=== PATIENT | female | born 1995 | race Caucasian/White ===

== ENCOUNTER → 2020-06-04 | Outpatient (REF) | payer OTHER ==
[2020-06-04 18:04] LABS: HEMATOCRIT 39.1 % (36.0-47.0); HEMOGLOBIN 13.3 g/dl (12.0-15.5); MEAN CORPUSCULAR HEMOGLOBIN 30.4 pg (27.0-33.0); MEAN CORPUSCULAR VOLUME 89.5 fl (80.0-96.0); PLATELET COUNT, AUTOMATED 369 10^3/uL (150-450); RED BLOOD COUNT 4.37 10^6/uL (4.00-5.40)
[2020-06-04 23:56] LABS: HCG, SERUM QUANTITATIVE 69981 MIU/ML; HEPATITIS C VIRUS ABY INDEX < 0.0 INDEX (<0.8)
[2020-06-06 09:21] LABS: HIV 1&2 SCREEN CENTAUR NEGATIVE (NEGATIVE)
== END ==
LOC: M LAB REF 16:26
PROVIDERS: ATTEND Advanced Practice Midwife
DX: Z36.89 Encounter for other specified antenatal screening (principal)

== ENCOUNTER → 2020-09-16 | Outpatient (CLI) | payer OTHER ==
[~2020-09-16] MED LIST: ACET-683 PO; COLA100C5 PO; IBUP-1022 PO; IBUP1TAB6 PO; ONDA4TAB6 PO; OXYC-517 PO; PRENTAB9 PO
[2020-09-16 13:26] LABS: HEMATOCRIT 36.6 % (36.0-47.0); HEMOGLOBIN 12.1 g/dl (12.0-15.5); MEAN CORPUSCULAR HEMOGLOBIN 31.1 pg (27.0-33.0); MEAN CORPUSCULAR HGB CONC 33.1 g/dl (32.0-36.5); MEAN CORPUSCULAR VOLUME 94.1 fl (80.0-96.0); PLATELET COUNT, AUTOMATED 396 10^3/uL (150-450); RED BLOOD COUNT 3.89 10^6/uL (4.00-5.40); WHITE BLOOD COUNT 11.8 10^3/uL (4.0-10.0)
== END ==
LOC: M LAB 09:15
PROVIDERS: ATTEND Advanced Practice Midwife
DX: Z36.89 Encounter for other specified antenatal screening (principal)

== ENCOUNTER 2020-10-28 02:54 | Outpatient (CLI) | payer OTHER ==
[~2020-10-28] VITALS: Ht 162.6 cm; Wt 117.3 kg
[2020-10-28 03:12] VITALS: BP 135/84
[2020-10-28] MEDS ORDERED: PRENTAB9 PO (03:31)
[2020-10-28 03:48] VITALS: BP 134/77
[2020-10-28] MEDS ORDERED: FAMOTIDINE 20 MG TAB PO ONE (04:05)
[2020-10-28] MEDS ORDERED: HOME MED LIST COMPLETE! XX SCH (04:15)
[2020-10-28 04:33] LABS: HEMATOCRIT 35.8 % (36.0-47.0); HEMOGLOBIN 12.2 g/dl (12.0-15.5); MEAN CORPUSCULAR HEMOGLOBIN 30.9 pg (27.0-33.0); MEAN CORPUSCULAR HGB CONC 34.1 g/dl (32.0-36.5); MEAN CORPUSCULAR VOLUME 90.6 fl (80.0-96.0); PLATELET COUNT, AUTOMATED 334 10^3/uL (150-450); RED BLOOD COUNT 3.95 10^6/uL (4.00-5.40); WHITE BLOOD COUNT 17.3 10^3/uL (4.0-10.0)
[2020-10-28 05:06] LABS: ALBUMIN 2.4 GM/DL (3.2-5.2); ALT/SGPT 36 U/L (12-78); AMYLASE 73 U/L (25-115); BILIRUBIN,DIRECT 0.2 MG/DL (0.0-0.2); BILIRUBIN,TOTAL 0.5 MG/DL (0.2-1.0); LIPASE 473 U/L (73-393)
[2020-10-28 05:39] VITALS: BP 115/62
--- NOTE | 2020-10-28 06:37 | REPVR ---
PROCEDURE INFORMATION: Exam: US Abdomen, Limited; Right Upper Quadrant Exam date and time: 10/28/2020 4:54 AM Age: 25 years old Clinical indication: Abdominal pain; Acute; ; Additional info: Upper abdominal pain TECHNIQUE: Imaging protocol: US abdomen. Real time ultrasound with image documentation. Limited exam focused on the right upper quadrant. COMPARISON: No relevant prior studies available. FINDINGS: Liver: No focal hepatic mass. Gallbladder: Cholelithiasis and echogenic bile in the gallbladder. Technologist assessment of sonographic Rivas sign was not reported. Common bile duct: Normal caliber of the incompletely visualized common bile duct measuring 4 mm. Pancreas: Obscuration of the pancreas by bowel gas. Right kidney: Normal morphology of the incompletely visualized right kidney. No hydronephrosis. Uterus: Nonvisualized intrauterine with a documented heart rate of 136 bpm. IMPRESSION: Cholelithiasis and echogenic bile in the gallbladder. Electronically signed by: Gamal Craft On 10/28/2020 06:36:19 AM
[2020-10-28 07:08] VITALS: BP 114/72
[2020-10-28] MEDS ORDERED: LR 1,000 ML IV SCH (07:10)
[2020-10-28] MEDS ORDERED: LACTATED RINGER'S 1000 ML IV ONE (07:10)
[2020-10-28 08:33] LABS: BLOOD UREA NITROGEN 8 MG/DL (7-18); CALCIUM LEVEL 8.6 MG/DL (8.5-10.1); CARBON DIOXIDE LEVEL 24 MEQ/L (21-32); CHLORIDE LEVEL 108 MEQ/L (98-107); CREATININE FOR GFR 0.41 MG/DL (0.55-1.30); GLOMERULAR FILTRATION RATE > 60.0 (>60); GLUCOSE, FASTING 100 MG/DL (70-100); POTASSIUM SERUM 3.9 MEQ/L (3.5-5.1); SODIUM LEVEL 139 MEQ/L (136-145)
--- NOTE | 2020-10-28 08:58 | IPN ---
PROGRESS NOTE DATE: 10/28/2020 SUBJECTIVE: Susie is a 25-year-old 1 para 0 at 33-5/7 weeks gestation with an estimated date of confinement (EDC) of 12/11/2020 based on first trimester ultrasound. She presented to labor and delivery today with report of acute onset of upper abdominal pain that was colicky in nature starting approximately at midnight and had gotten worse. She reports the pain is a constant pain with surges of more increasingly uncomfortable episodes every few minutes. She does deny painful contractions, vaginal bleeding, leakage of fluid; the fetus has been active. Her care was initiated at [facility] in the first trimester. course complicated by obesity. OBSTETRIC HISTORY: Primigravida. OBSTETRIC LABORATORY: A positive. Antibody screen negative. Rubella immune. VDRL nonreactive. Urine culture: No growth. Hepatitis B surface antigen negative. HIV negative. Hepatitis C antibody nonreactive. Gonorrhea and chlamydia negative. Gestational diabetic screening normal at 59 and her GBS is unknown at this time. MEDICAL PROBLEMS: Obesity. SURGERIES: Tympanostomy, tympanoplasty, ear. FAMILY HISTORY: Noncontributory. SOCIAL HISTORY: The patient is single; however, the partner is at bedside and supportive. She is a nonsmoker. Denies alcohol and drug use. Denies history of sexually-transmitted infections, and denies history of abuse; physical, sexual and emotional. ALLERGIES: SULFA. CURRENT MEDICATIONS: vitamin. OBJECTIVE: Upon arrival, the patient appears mildly uncomfortable. Temperature is 97.2, pulse 88, respirations 18, blood pressure 135/84. heart rate 130 with moderate variability, positive accelerations, negative decelerations. There is no pattern of regular painful contractions. Sterile vaginal examination: Long, thick and closed. Labs have returned. Her WBCs are 17.3. Her AST is 47, alkaline phosphatase 140, lipase 473, amylase 73. She did undergo a gallbladder ultrasound which noted cholelithiasis and echogenic bile in the gallbladder. ASSESSMENT: Intrauterine at 33-5/7 weeks. heart rate category 1. Cholelithiasis. Elevated lipase. PLAN: Continue NPO diet, IV fluids and basic metabolic panel to check electrolytes. Continue to observe. At this time, the patient does report that her pain is significantly decreased; however, still mildly present. I did review instructions related to low-fat diet to prevent further complications with gallstones and palliative measures. The patient and her partner have had their questions answered and are agreeable to the plan at this time.
[2020-10-28 09:35] VITALS: BP 129/66
== END 2020-10-28 09:37 | disposition home or self-care (01) ==
LOC: M LDO 02:54
PROVIDERS: ATTEND Advanced Practice Midwife
DX: O99.613 Diseases of the digestive system complicating pregnancy, third trimester (principal); Z3A.33 33 weeks gestation of pregnancy; K80.20 Calculus of gallbladder without cholecystitis without obstruction; Z88.2 Allergy status to sulfonamides; O99.213 Obesity complicating pregnancy, third trimester; E66.9 Obesity, unspecified
CPT/HCPCS: 36415; 59025; 76705; 80048; 80076; 82150; 83690; 85027; 96360; G0378; G0463

== ENCOUNTER 2020-11-11 15:33 | Outpatient (CLI) | payer OTHER ==
[~2020-11-11] VITALS: Ht 160 cm; Wt 116.4 kg
[~2020-11-11 15:33] MED LIST changes: -ACET-683 PO; -COLA100C5 PO; -IBUP-1022 PO; -IBUP1TAB6 PO; -ONDA4TAB6 PO; -OXYC-517 PO
--- NOTE | 2020-11-11 16:01 | HPEPDOC ---
Obstetrical History & Physical General Date of Admission History of Present Illness Pt is a 25yo F at 35+5/7 weeks with EDC of 12/11/2020 based on first trimester ultrasound who presents with 32 hr Hx of decreased movement. Pt was seen at [facility] this morning. She denies bleeding, significant fluid loss, contractions, or abdominal pain. Information Provided By: Patient Age: 25 : 1 Term: 0 Pre-term: 0 Abortions: 0 Livin Care Care: Good Care Dating Final EDC: Dec 11, 2020 Final EDC by: 1st trimester (US) Past Medical History Past Obstetrical History : Past Obstetrical History: Primgravida Complications: No COGNOS ANALYST History: No pertinent history Past Medical History Surgical History: Gallbladder (Cholelithiasis), Other (Tympanostomy ) Family History Significant Family History: No pertinent family hx Social History Marital Status: Single (Has partner) Family situation: Spouse/partner home Psychosocial History: No pertinent psych hx * Smoker: non-smoker Alcohol: Denies Drugs: denies Abuse Violence Screening Have you been sexually assault: No Allergies Coded Allergies: Sulfa (Sulfonamide Antibiotics) (Verified Allergy, Unknown, 10/28/20) swelling throat mouth face, hives Medications Scheduled No.137/Iron/Folic Acd ( Vitamin Tablet) 1 Each Tablet, 1 TAB PO DAILY Physical Examination Physical Examination GENERAL: Alert and oriented times three. BREAST: . ABDOMEN: Gravid and non-tender to touch. FETUS: Is vertex (VTX) by sterile vaginal examination (SVE), fetus is vertex (VTX) by Candelario. HEART RATE: Regular rate and rhythm. LUNGS: Clear to auscultation (CTA). EXTREMITIES: No edema. No clonus. Pertinent Laboratoy Data Blood Type: A+ Tocometer Contractions: No Assessment/Plan Assessment Pt is a 25-year-old (G)1 para (P)0-0-0-0 at 35+5/7 weeks by first trimester ultrasound. Presents to Labor and Delivery (L&D) with decreased movement for 32hrs. Plan patient has had 10/10 BPP. home with PTL precautions and FKCs f/u at OB office SEBLE CORTES OMS-3 Nov 11, 2020 16:01 EDGARDO BLANTON MD. Nov 12, 2020 05:33
--- NOTE | 2020-11-11 16:41 | REP ---
INDICATION: decreased movement COMPARISON: None. TECHNIQUE: Transabdominal obstetrical ultrasound with color Doppler evaluation. FINDINGS: Examination demonstrates a single live advanced intrauterine in cephalic presentation. motion is identified by technologist. Placenta is noted anterior and grade 3 without evidence for placenta previa or abruption. Amniotic fluid volume is normal. Cervix measures 3.0 cm in length and appears closed.. Selected gestational age: 35 weeks 5 days with BONNIE 12/11/2020. FHR equals 132 beats per minute. Biophysical profile score: 09/21 RYNE: 9.6 cm (7.8-24.9) Umbilical artery SD ratio: 2.28, 2.37 (1.65-3.53) IMPRESSION: Single live advanced gestation in cephalic presentation. Amniotic fluid volume and biophysical profile score normal. <Electronically signed by Rod Amador > 11/11/20 [id number]
[2020-11-11] MEDS ORDERED: HOME MED LIST COMPLETE! XX SCH (17:00)
[2020-11-11 17:04] VITALS: BP 102/52
== END 2020-11-11 18:00 | disposition home or self-care (01) ==
LOC: M LDO 15:33
PROVIDERS: ATTEND Obstetrics & Gynecology
DX: O36.8130 Decreased fetal movements, third trimester, not applicable or unspecified (principal); Z3A.35 35 weeks gestation of pregnancy; Z90.49 Acquired absence of other specified parts of digestive tract; Z88.2 Allergy status to sulfonamides
CPT/HCPCS: 59025; 76819; 76820; G0378; G0463

== ENCOUNTER → 2020-11-18 | Outpatient (REF) | payer OTHER | LOC: M LAB REF 11:34 | PROVIDERS: ATTEND Obstetrics & Gynecology | DX: Z34.83 Encounter for supervision of other normal pregnancy, third trimester (principal) ==

== ENCOUNTER 2020-12-03 15:26 | Inpatient (IN) | payer OTHER ==
[~2020-12-03] VITALS: Ht 160 cm; Wt 118.0 kg
[2020-12-03] VITALS (8 sets, daily range): BP systolic 125–174; BP diastolic 68–104
[2020-12-03] MEDS ORDERED: HOME MED LIST COMPLETE! XX SCH ×2 (15:55)
[2020-12-03 17:31] LABS: HEMATOCRIT 35.2 % (36.0-47.0); HEMOGLOBIN 12.2 g/dl (12.0-15.5); MEAN CORPUSCULAR HEMOGLOBIN 31.1 pg (27.0-33.0); MEAN CORPUSCULAR HGB CONC 34.7 g/dl (32.0-36.5); MEAN CORPUSCULAR VOLUME 89.8 fl (80.0-96.0); PLATELET COUNT, AUTOMATED 359 10^3/uL (150-450); RED BLOOD COUNT 3.92 10^6/uL (4.00-5.40); WHITE BLOOD COUNT 14.4 10^3/uL (4.0-10.0)
[2020-12-03 17:59] LABS: ALBUMIN 2.3 GM/DL (3.2-5.2); BILIRUBIN,DIRECT 0.1 MG/DL (0.0-0.2); BILIRUBIN,TOTAL 0.4 MG/DL (0.2-1.0); TOTAL PROTEIN 6.1 GM/DL (6.4-8.2)
[2020-12-03] MEDS ORDERED: LACTATED RINGER'S 1000 ML IV ONE (19:35)
[2020-12-03] MEDS: LR 1,000 ML IV SCH (20:50)
[2020-12-03] MEDS ORDERED: ursodioL 300 MG CAP PO SCH (21:00)
--- NOTE | 2020-12-03 21:48 | REPVR ---
PROCEDURE INFORMATION: Exam: US Abdomen Complete Exam date and time: 12/03/2020 8:37 PM Age: 25 years old Clinical indication: Abdominal pain; Other: Ruq; ; Additional info: Pancreatitis, HX cholelithiasis, lipase elevated TECHNIQUE: Imaging protocol: Real-time ultrasound of the abdomen with image documentation. COMPARISON: US Abdomen 10/28/2020 4:42 AM FINDINGS: Liver: Unremarkable. Gallbladder: Cholelithiasis without gallbladder wall thickening or pericholecystic fluid. Negative sonographic Rivas's sign, as per the mineral surveying technician. Common bile duct: No stones. No ductal dilatation. Pancreas: Suboptimally visualized. Right kidney: No mass. No definite stones. No hydronephrosis. Left kidney: No mass. No definite stones. No hydronephrosis. Spleen: Unremarkable. IMPRESSION: Cholelithiasis without sonographic evidence of acute cholecystitis. Electronically signed by: Orlin Olea On 12/03/2020 21:47:45 PM
[2020-12-03] MEDS: ursodioL 300 MG CAP PO SCH (23:26)
--- NOTE | 2020-12-03 23:58 | HPE ---
HISTORY AND PHYSICAL DATE OF ADMISSION: 12/03/2020 HISTORY OF PRESENT ILLNESS: Liliana is a 25-year-old 1, para 0, at 38 and 6/7 weeks gestation with an EDC of 12/11/2020 based on first trimester ultrasound. She presents to labor and delivery today with a report of severe upper abdominal pain that occurred approximately an hour and a half after eating lunch, which was a peanut and jelly sandwich. Of note; she does have known cholelithiasis and echogenic bile in the gallbladder and has been managing that expectedly with a low fat diet over the last month. She reports that the pain was severe and has now subsided and it is much more bearable since arriving to labor and delivery. She denies painful contractions, vaginal bleeding and leakage of fluid, the fetus has been active. Her care initiated at [facility] in the first trimester. Her course was complicated by obesity and the recent diagnosis of cholelithiasis. OBSTETRIC HISTORY: Primigravida. OBSTETRIC LABS: A+. Antibody screen negative. Rubella immune. VDRL nonreactive. Urine culture no growth. Hepatitis B surface antigen negative. HIV negative. Hepatitis C negative. Gonorrhea and Chlamydia negative. She did undergo noninvasive testing, which showed low risk for aneuploidy, male fetus. Gestational diabetes screening is 59. GBS is negative. Urine culture no growth. PAST MEDICAL HISTORY: Obesity. PAST SURGICAL HISTORY: Tympanostomy. ALLERGIES: Sulfa. FAMILY HISTORY: Noncontributory. SOCIAL HISTORY: Patient is single, however, there is a partner that is at bedside and supportive. She is a nonsmoker. She denies current alcohol use and drug use. She denies history of sexually transmitted infections. She denies history of abuse; physical, sexual and emotional. CURRENT MEDICATIONS: Vitamins. OBJECTIVE: VITALS: Temperature 97.6, pulse 87, respirations 18, blood pressure 102/52. The heart rate is 130 with moderate variability, positive accelerations, negative decelerations. There is no pattern of contractions. ABDOMEN: Gravid, in cephalic presentation. STERILE VAGINAL EXAM: Fingertip dilated, thick and -3 station. She did undergo repeat liver enzymes, LABORATORY DATA: Alkaline phosphatase 238. AST 21, ALT 30. Her amylase 296, which is elevated and her lipase is significantly elevated at 3,195. White blood cell count is 14.4, hemoglobin 12.2, hematocrit 35.2 and platelets 359,000. IMAGING: Abdominal ultrasound was ordered to evaluate the pancreas. The pancreas is suboptimally visualized due to the . Her gallbladder demonstrates cholelithiasis without gallbladder wall thickening or pericholecystitic fluid. Negative sonographic Rivas's Sign per the lead assistant manager. Common bile duct; no stones, no ductal dilatation. ASSESSMENT: Intrauterine at 38 and 6/7 weeks. heart rate is category 1. Acute pancreatitis. PLAN: Per consult with Dr. Quintin Ruff I.V. fluids NPO diet to continue. Pain management as needed. Start Ursodiol. Repeat the labs in the morning. May consider induction of labor tomorrow as the patient will be 39 weeks. I did review the plan with the patient and her partner; all of their questions have been answered and they are agreeable to this plan. The patient will be removed from electronic monitoring overnight so she may rest. JD
[2020-12-04] VITALS (8 sets, daily range): BP systolic 83–138; BP diastolic 47–77
[2020-12-04] MEDS: LR 1,000 ML IV SCH ×2 (04:14→11:33)
[2020-12-04 08:17] LABS: HEMOGLOBIN 11.2 g/dl (12.0-15.5); MEAN CORPUSCULAR HEMOGLOBIN 30.4 pg (27.0-33.0); MEAN CORPUSCULAR HGB CONC 33.9 g/dl (32.0-36.5); MEAN CORPUSCULAR VOLUME 89.7 fl (80.0-96.0); PLATELET COUNT, AUTOMATED 285 10^3/uL (150-450); RED BLOOD COUNT 3.68 10^6/uL (4.00-5.40)
[2020-12-04 08:34] LABS: BILIRUBIN,DIRECT 0.1 MG/DL (0.0-0.2); BILIRUBIN,TOTAL 0.5 MG/DL (0.2-1.0)
[2020-12-04] MEDS: ursodioL 300 MG CAP PO SCH (10:29)
--- OUTSIDE RECORDS SUMMARY | 2020-12-04 21:03 | CCD ---
Author Author [facility] Address Unknown Phone Unavailable Care Team Providers Care Lepidopterist Name Role Phone Maring, Noe PA Unavailable Unavailable Maring, Noe PA Unavailable Unavailable Maring, Noe PA Unavailable Unavailable Maring, Noe PA Unavailable Unavailable Maring, Noe PA Unavailable Unavailable Maring, Noe PA Unavailable Unavailable Maring, Noe PA Unavailable Unavailable Maring, Noe PA Unavailable Unavailable Maring, Noe PA Unavailable Unavailable Maring, Noe PA Unavailable Unavailable Maring, Noe PA Unavailable Unavailable Maring, Noe PA Unavailable Unavailable Maring, Noe PA Unavailable Unavailable Maring, Noe PA Unavailable Unavailable Maring, Noe PA Unavailable Unavailable Maring, Noe PA Unavailable Unavailable Re-disclosure Warning The records that you are about to access may contain information from federally-assisted alcohol or drug abuse programs. If such information is present, then the following federally mandated warning applies: This information has been disclosed to you from records protected by federal confidentiality rules (42 CFR part 2). The federal rules prohibit you from making any further disclosure of this information unless further disclosure is expressly permitted by the written consent of the person to whom it pertains or as otherwise permitted by 42 CFR part 2. A general authorization for the release of medical or other information is NOT sufficient for this purpose. The Federal rules restrict any use of the information to criminally investigate or prosecute any alcohol or drug abuse patient.The records that you are about to access may contain highly sensitive health information, the redisclosure of which is protected by Article 27-F of the [place] State Public Health law. If you continue you may have access to information: Regarding HIV / AIDS; Provided by facilities licensed or operated by the [facility] Office of Mental Health; or Provided by the [facility] Office for People With Developmental Disabilities. If such information is present, then the following [facility] mandated warning applies: This information has been disclosed to you from confidential records which are protected by state law. State law prohibits you from making any further disclosure of this information without the specific written consent of the person to whom it pertains, or as otherwise permitted by law. Any unauthorized further disclosure in violation of state law may result in a fine or long-term sentence or both. A general authorization for the release of medical or other information is NOT sufficient authorization for further disc losure. Encounters Encounter Providers Location Date Indications Data Source(s ) Outpatient Attender: Noe PERKINS 09/01/19 04:14:46 PM EDT - 08/31/2020 04:42:27 PM EDT [facility] ([facility] ) Medications No Information Insurance Providers Payer name Policy type / Coverage type Policy ID Covered democrat ID Covered democrat's relationship to hanson Policy [place]on Plan Information [id number]/ [id number] Other 00 [id number] [facility] [id number] FA2 [id number] [facility] [id number] Problems, Conditions, and Diagnoses No Information Surgeries/Procedures No Information Results No Information Social History No Information
--- NOTE | 2020-12-04 21:14 | IPNPDOC ---
Text Note Date of Service The patient was seen on 12/04/20. NOTE S: 25 yo G1 at 39 0/7 weeks admitted with gallstone pancreatitis. Pain resolved. Able to tolerate low fat diet. O: AVSS NAD Abd: NT, gravid FHT: Cat. I toco: irregular ultrasound: vtx A/P 25 yo G1 at 39 0/7 weeks with gallstone pancreatitis Plan labor induction with Misoprostol vtx confirmed closed cervix at last exam Pancreatitis labs reversing VS,Fishbone, I+O VS, Fishbone, I+O Laboratory Tests 12/04/20 07:40 Vital Signs Date Time Temp Pulse Resp B/P (MAP) Pulse Ox O2 Delivery O2 Flow Rate FiO2 12/04/20 18:00 98.4 79 18 120/73 (89) 98 Room Air I&O- Last 24 Hours up to 6 AM 12/04/20 06:00 Intake Total 937.5 ml Output Total 250 ml Balance 687.5 ml SHAKA SANABRIA MD Dec 04, 2020 21:14
[2020-12-04] MEDS: miSOPROStol 50MCG 1/2 TABLET SL SCH (22:18)
[2020-12-05] VITALS (37 sets, daily range): BP systolic 80–140; BP diastolic 45–86
[2020-12-05] MEDS: miSOPROStol 50MCG 1/2 TABLET SL SCH ×2 (02:48→07:23)
[2020-12-05 09:16] LABS: HEMATOCRIT 37.8 % (36.0-47.0); HEMOGLOBIN 12.9 g/dl (12.0-15.5); MEAN CORPUSCULAR HEMOGLOBIN 30.5 pg (27.0-33.0); MEAN CORPUSCULAR HGB CONC 34.1 g/dl (32.0-36.5); MEAN CORPUSCULAR VOLUME 89.4 fl (80.0-96.0); PLATELET COUNT, AUTOMATED 367 10^3/uL (150-450); RED BLOOD COUNT 4.23 10^6/uL (4.00-5.40); WHITE BLOOD COUNT 12.6 10^3/uL (4.0-10.0)
--- NOTE | 2020-12-05 09:48 | IPNPDOC ---
Text Note Date of Service The patient was seen on 12/05/20. NOTE Progress Denies pain, bleeding or LOF Reports good movement. Cat I tracing, difficult to trace due to habitus SVE 2/50/-3, moderate texture Cooks catheter placed, inflated with 60/40cc NS Will start pitocin 4hr after last misoprostol. Pt plans epidural VS,Fishbone, I+O VS, Fishbone, I+O Laboratory Tests 12/05/20 09:06 Vital Signs Date Time Temp Pulse Resp B/P (MAP) Pulse Ox O2 Delivery O2 Flow Rate FiO2 12/05/20 06:14 83 140/81 (100) 12/05/20 05:36 98.7 18 12/04/20 18:00 98 Room Air I&O- Last 24 Hours up to 6 AM 12/05/20 06:00 Intake Total 2518 ml Output Total 500 ml Balance 2018 ml Concepcion Portillo CNM Dec 05, 2020 09:48
[2020-12-05] MEDS ORDERED: LR 1,000 ML IV SCH (09:50)
[2020-12-05] MEDS ORDERED: OXYTOCIN DRIP 30 UNITS in IV 1 EA IV SCH (09:50)
[2020-12-05] MEDS ORDERED: PROMETHAZINE INJ 25 MG/ML VIAL (J2550) IV ONE (10:55)
[2020-12-05] MEDS ORDERED: BUTORPHANOL 2 MG/ML INJ (J0595) IV ONE (10:55)
[2020-12-05] MEDS ORDERED: OXYTOCIN 30 UNITS IN 0.9% NaCl 500ML IV BAG (J2590) As Ordered ONE ×2 (12:19→23:14)
[2020-12-05] MEDS ORDERED: FENTANYL 2MCG/ML ROPIVACAINE 0.2% IN 0.9% NACL 100ML IVBAG As Ordered ONE (12:52)
[2020-12-05] MEDS ORDERED: REFRIGERATOR IV KEYS XX PRN (13:05)
[2020-12-05] MEDS ORDERED: ONDANSETRON 4MG/2ML VIAL IV PRN ×2 (13:05→23:16)
[2020-12-05] MEDS ORDERED: EPIDURAL/PCA KEYS XX PRN (13:05)
[2020-12-05] MEDS ORDERED: NALOXONE INJ 0.4MG/1ML VIAL (J2310 PER 1MG) IV PRN ×3 (13:05→23:16)
[2020-12-05] MEDS ORDERED: diphenhydrAMINE 50MG/ML VIAL (J1200) IV PRN ×2 (13:05→23:16)
[2020-12-05] MEDS ORDERED: LACTATED RINGER'S 1000 ML IV PRN (13:05)
[2020-12-05] MEDS ORDERED: ePHEDrine SULFATE 25 MG/5 ML(5MG/ML) SYRINGE IV PRN (13:05)
[2020-12-05] MEDS ORDERED: EPIDURAL COMMENT XX SCH (13:05)
[2020-12-05] MEDS: FENTANYL/ROPIVACAINE/NACL BAG 100 ML EPIDURAL SCH ×2 (13:24→22:33)
--- NOTE | 2020-12-05 14:00 | IPNPDOC ---
Text Note Date of Service The patient was seen on 12/05/20. NOTE Progress Comfortable with epidural SVE - cooks catheter sitting in vagina, removed intact SVE /-2 AROM clear fluid, FSE applied Cat I tracing, UC 2-4 minutes x 45-60 seconds VS,Fishbone, I+O VS, Fishbone, I+O Laboratory Tests 12/05/20 09:06 Vital Signs Date Time Temp Pulse Resp B/P (MAP) Pulse Ox O2 Delivery O2 Flow Rate FiO2 12/05/20 11:24 18 12/05/20 10:02 98.2 75 132/63 (86) 12/04/20 18:00 98 Room Air I&O- Last 24 Hours up to 6 AM 12/05/20 06:00 Intake Total 2518 ml Output Total 500 ml Balance 2018 ml Concepcion Portillo CNM Dec 05, 2020 14:00
[2020-12-05] MEDS ORDERED: BICITRA 30ML SOLN UDC PO ONE (22:20)
[2020-12-05] MEDS ORDERED: METHYLERGONOVINE MALEATE 0.2 MG/ML VIAL (J2210) IM PRN (22:20)
[2020-12-05] MEDS ORDERED: ceFAZolin SOD 2 GM in IV 1 EA IV ONE (22:20)
[2020-12-05] MEDS ORDERED: AZITHROMYCIN INJ 500 MG, VIAL MATE ADAPTER 1 EACH in NS 250 ML IV ONE (22:20)
[2020-12-05] MEDS ORDERED: OXYTOCIN DRIP 30 UNITS in IV 1 EA IV PRN (22:20)
--- NOTE | 2020-12-05 22:20 | IPNPDOC ---
Text Note Date of Service The patient was seen on 12/05/20. NOTE S: Pt comfortable with epidural O: IUPC replaced, Uterine contractions q 2-4 minutes. FHR with baseline of 150 with cat 3 tracing. SVE reveals 6-7 cm/-3 station. A: cat 3 tracing P: Dr Romero notified and requested to attend. Pitocin discontinued. IUPC and FSE remain in place. VS,Fishbone, I+O VS, Fishbone, I+O Laboratory Tests 12/05/20 09:06 Vital Signs Date Time Temp Pulse Resp B/P (MAP) Pulse Ox O2 Delivery O2 Flow Rate FiO2 12/05/20 20:01 98.3 17 12/05/20 17:50 90 139/73 (95) Room Air 12/04/20 18:00 98 I&O- Last 24 Hours up to 6 AM 12/05/20 06:00 Intake Total 2518 ml Output Total 500 ml Balance 2018 ml Concepcion Portillo CNM Dec 05, 2020 22:20
[2020-12-05] MEDS ORDERED: MORPHINE PRES-FREE INJ 10 MG/10 ML VIAL (J2274) As Ordered ONE (23:14)
[2020-12-05] MEDS ORDERED: METOCLOPRAMIDE INJ 10MG/2ML VIAL (J2765 PER 1) As Ordered ONE (23:14)
[2020-12-05] MEDS ORDERED: ACETAMINOPHEN 1000MG 100ML IV BTL (OFIRMEV) (J0131 PER 10MG) As Ordered ONE (23:14)
[2020-12-05] MEDS ORDERED: SODIUM BICARBONATE 8.4% INJ 50MEQ 50 ML VIAL As Ordered ONE (23:14)
[2020-12-05] MEDS ORDERED: ONDANSETRON 4MG/2ML VIAL As Ordered ONE (23:14)
[2020-12-05] MEDS ORDERED: dexameTHASONE 4 MG/ML 1ML VIAL (J1100 PER 1MG) As Ordered ONE (23:14)
[2020-12-05] MEDS ORDERED: LIDOCAINE 2% W/EPINEPHRINE 20ML VIAL **PRES FREE As Ordered ONE (23:14)
[2020-12-05] MEDS ORDERED: KETOROLAC 60MG 2ML VIAL As Ordered ONE (23:14)
[2020-12-05] MEDS ORDERED: NALBUPHINE HCL 10 MG/ML AMP (J2300) IV PRN (23:16)
[2020-12-05] MEDS ORDERED: METOCLOPRAMIDE INJ 10MG/2ML VIAL (J2765 PER 1) IV PRN (23:16)
[2020-12-05] MEDS ORDERED: PHENYLephrine 500MCG 5ML (100MCG/ML) SYRINGE As Ordered ONE (23:30)
[2020-12-05 23:43] LABS: CORD GAS PCO2 A 72.6 mmHg
[2020-12-05 23:45] LABS: CORD GAS ABE V -6.6; CORD GAS O2 SAT V 39.4 %; CORD GAS PCO2 V 49.3 mmHg; CORD GAS PH V 7.248 UNITS; CORD GAS PO2 V 19.9 mmHg; CORD GAS SBC V 17.8 MEQ/L; CORD GAS TCO2 V 22.6 MEQ/L
[2020-12-05 23:45] LABS: CORD GAS ABE A -6.2; CORD GAS HCO3 A 24.6 MEQ/L; CORD GAS O2 SAT A 16.7 %; CORD GAS PH A 7.148 UNITS; CORD GAS PO2 A 11.6 mmHg; CORD GAS SBC A 17.6 MEQ/L; CORD GAS TCO2 A 26.8 MEQ/L
[2020-12-06] VITALS (10 sets, daily range): BP systolic 110–140; BP diastolic 54–84
[2020-12-06] MEDS ORDERED: ONDANSETRON 4MG/2ML VIAL IV PRN ×2 (00:10→00:20)
[2020-12-06] MEDS ORDERED: OXYTOCIN DRIP 30 UNITS in IV 1 EA IV SCH (00:10)
[2020-12-06] MEDS ORDERED: RHOGAM 300 MCG (1500 IU) INJ (J2790) IM SCH (00:10)
[2020-12-06] MEDS ORDERED: SIMETHICONE 80MG CHEW TAB PO PRN (00:10)
[2020-12-06] MEDS ORDERED: MEASLES,MUMPS,RUBELLA VACCINE INJ (MMR-II) (90707) SC SCH (00:10)
[2020-12-06] MEDS ORDERED: DOCUSATE SODIUM 100MG CAPSULE PO PRN (00:10)
[2020-12-06] MEDS ORDERED: oxyCODONE 5MG TAB PO PRN (00:10)
[2020-12-06] MEDS ORDERED: fentaNYL 100 MCG/2 ML INJECTION (J3010) IV PRN (00:20)
[2020-12-06] MEDS ORDERED: KETOROLAC 30 MG/ML 1ML VIAL IV PRN (00:20)
[2020-12-06] MEDS ORDERED: fentaNYL 100 MCG/2 ML INJECTION (J3010) As Ordered ONE (00:24)
--- NOTE | 2020-12-06 00:24 | ROOPDOC ---
[facility] Report Of Operation Report of Operation DATE OF PROCEDURE: 12/05/2020 PREPROCEDURE DIAGNOSES: intolerance of labor POSTPROCEDURE DIAGNOSES: Same. PROCEDURE PERFORMED: Primary low transverse section. SURGEON: Kunal Milan MD BATTERY CHARGER TESTER: MD Kendell ANESTHESIA: Epidural ESTIMATED BLOOD LOSS: 550 IVF: 1300 cc of crystalloid UOP: 300 clear yellow urine OPERATIVE START TIME: 2257 OPERATIVE END TIME: 2354 TIME OF DELIVERY: 2306 TIME OF PLACENTA: 2308 COMPLICATIONS: None apparent INDICATION FOR PROCEDURE: Patient is a 25-year-old G 1, P 0 at 38 weeks and 5 days EGA who presented to labor and delivery for induction of labor secondary to diagnosis of gallstone pancreatitis. She underwent cervical ripening with misoprostol x3 doses and was switched to regular dose Pitocin. She received an epidural and progressed to 7 cm dilated. However heart tracing became category 2 with recurrent variable decelerations and several prolonged decelerations improved with maternal position changes and oxygen. The head was at -2 station and given a category 2 tracing the decision was made to proceed with a delivery. Benefits and risks reviewed with the patient and informed consent was obtained. FINDINGS: Single liveborn male in the occiput posterior position weighing 3260 g with Apgars of 5 8 and 9 at 1 and 5 and 10 minutes respectively. SPECIMENS REMOVED: Placenta PROCEDURE NOTE: The patient was brought to the operating suite in stable condition for primary low transverse section with epidural anesthesia on board and an indwelling catheter in place in the bladder. The patient was placed supine on the operating room table and rolled to her left side with a wedge. The abdomen was prepped and draped in standard fashion for section. After testing with rosales clamp to assure an adequate anesthetic level, the surgery was commenced. With the scalpel, a Pfannenstiel skin incision was made. Dissection was carried down sharply through the subcutaneous tissues to the underlying fascia. The fascia was knicked on either side of the midline and extended laterally using pick ups and curved Cloud scissors. The inferior aspect of the fascial incision was grasped with kolker clamps and elevated off the underlying rectus muscle with a scalpel. This process was then repeated with the lower aspect of the fascial incision. The peritoneum was identified and entered bluntly and was bluntly stretched laterally and cephalad. The vesicouterine junction was identified and a bladder flap was created by incising transversely through the peritoneum and vesicouterine fold and then bluntly dissecting the bladder distally. A mobius retractor was placed intra-abdominally. With the scalpel, a low transverse hysterotomy was commenced. The serosa and myometrium were scored with the scalpel. The uterine incision was then extended laterally with the operators fingers. An intrauterine hand was placed and the head of the was brought up out of the pelvis into the uterine incision. With fundal pressure, the infant was delivered without difficulty. The cord was doubly clamped and transected. The infant was then handed off to the nursery personnel. The placenta was manually removed. The uterine cavity was then curetted with a dry sponge and freed of the remaining membranes. The edges of the uterine incision were grasped with ringed forceps. The uterine incision was then closed in 2 layers of 0 Vicryl sutures. The pelvis and gutters were irrigated and suctioned and cleared of all blood and clots and amniotic fluid. The uterine incision was reinspected to assure hemostasis. The uterus, tubes and ovaries were inspected and were normal. Once we were satisfied with the hemostasis, attention was turned to closure of the abdominal incision. The fascia was closed in layers using 0-Vicryl sutures. The subcutaneous tissue was closed with 3-0 vi cryl sutures x2. The skin was closed with a subcuticular suture of 4-0 monocryl followed by, Steri-Strips and a optifoam dressing. The patient was moved to the recovery room in stable condition with the Ayala catheter draining clear urine. Instruments, sponge and needle counts were reported as correct. KUNAL MILAN MD Dec 06, 2020 00:24
[2020-12-06] MEDS ORDERED: LR 500 ML IV ONE (04:00)
[2020-12-06] MEDS: LR 1,000 ML IV SCH ×3 (04:04→11:01)
[2020-12-06] MEDS: ACETAMINOPHEN 500 MG TAB PO SCH ×3 (06:26→18:10)
[2020-12-06] MEDS: KETOROLAC 30 MG/ML 1ML VIAL IV SCH ×3 (06:27→18:12)
[2020-12-06] MEDS: FENTANYL/ROPIVACAINE/NACL BAG 100 ML EPIDURAL SCH ×2 (07:04→08:53)
[2020-12-06] MEDS: PRENATAL VITAMINS CHEWABLE TABLET PO SCH (09:24)
--- NOTE | 2020-12-06 13:49 | IPNPDOC ---
Progress Note Date of Service: Dec 06, 2020 Day#: 1 Progress Note SUBJECT: Patient is a 25-year-old G 1 P 1 status post uncomplicated primary ce sarean section at 38-5/7 weeks' doing well day #1. She has been ambulating, voiding spontaneously without issue and tolerating regular diet. Breast feeding without issue. Reports lochia is like a normal period. Patient is ambulating well. Reports some cramping, well controlled with medication. Voiding and ambulating without difficulty. She is passing flatus. OBJECTIVE: VITAL SIGNS: Within normal limits, afebrile. Alert and oriented times three. Breath sounds clear to auscultation. Heart rate: Regular rate and rhythm, no murmurs, rubs or gallops. Abdomen: Fundus firm at U-2. Soft, appropriately tender to palpation. Sterile bandage clean and dry. Minimal to moderate lochia. ASSESSMENT: Patient is a 25-year-old G 1 P 1 status post uncomplicated primary section for intolerance of labor after presenting to labor and delivery for induction of labor for gallstone pancreatitis. Doing well on day 1. Vitals within normal limits, afebrile, hemodynamically stable with no evidence of infection. PLAN: 1. Discharge to home on postoperative day 3. 2. Tylenol and Toradol for pain. We will switch to Motrin once 24 hours postoperative 3. Encourage breast feeding and ambulation. VS, [facility]&O[facility]O Vital Signs Date Time Temp Pulse Resp B/P (MAP) Pulse Ox O2 Delivery O2 Flow Rate FiO2 12/06/20 10:00 97.8 75 18 124/66 (85) 97 Room Air I&O- Last 24 Hours up to 6 AM 12/06/20 05:59 Intake Total 1821 ml Output Total 2080 ml Balance -259 ml Laboratory Data 24H LABS Laboratory Tests 2 12/05/20 23:07: Cord Arterial Blood pH 7.148, Cord Arterial Blood PCO2 72.6, Cord Arterial Blood PO2 11.6, Cord Arterial Blood HCO3 24.6, Cord Arterial Blood Total CO2 26.8, Cord Arterial Blood Base Excess -6.2, Cord Arterial Base Excess (Standard 17.6, Cord Arterial Bld Oxygen Saturation 16.7 12/05/20 23:08: Cord Venous Blood pH 7.248, Cord Venous Blood PCO2 49.3, Cord Venous Blood PO2 19.9, Cord Venous Blood HCO3 21.0, Cord Venous Blood Total CO2 22.6, Cord Venous Base Excess (Actual) -6.6, Cord Venous Base Excess (Standard) 17.8, Cord Venous Blood Oxygen Saturation 39.4 KUNAL MILAN MD Dec 06, 2020 13:49
[2020-12-07] MEDS: IBUPROFEN 600MG TAB PO SCH ×3 (00:17→11:27)
[2020-12-07] MEDS: ACETAMINOPHEN 500 MG TAB PO SCH ×3 (00:18→11:28)
[2020-12-07 02:14] VITALS: BP 122/65
[2020-12-07] MEDS: FENTANYL/ROPIVACAINE/NACL BAG 100 ML EPIDURAL SCH (04:10)
[2020-12-07 06:00] VITALS: BP 119/61
[2020-12-07] MEDS: PRENATAL VITAMINS CHEWABLE TABLET PO SCH (08:15)
[2020-12-07 08:28] LABS: MEAN CORPUSCULAR HEMOGLOBIN 31.3 pg (27.0-33.0); MEAN CORPUSCULAR HGB CONC 33.9 g/dl (32.0-36.5); MEAN CORPUSCULAR VOLUME 92.1 fl (80.0-96.0); PLATELET COUNT, AUTOMATED 243 10^3/uL (150-450); RED BLOOD COUNT 3.04 10^6/uL (4.00-5.40); WHITE BLOOD COUNT 13.4 10^3/uL (4.0-10.0)
[2020-12-07 08:31] LABS: HEMOGLOBIN 9.5 g/dl (12.0-15.5)
[2020-12-07] MEDS ORDERED: ACET-683 PO (08:31)
[2020-12-07] MEDS ORDERED: OXYC-517 PO (08:31)
[2020-12-07] MEDS ORDERED: IBUP-1022 PO (08:31)
[2020-12-07] MEDS ORDERED: COLA100C5 PO (08:31)
--- NOTE | 2020-12-08 12:48 | IPN ---
PROGRESS NOTE DATE: 12/06/2020 SUBJECTIVE: This patient requested circumcision of her male . After discussing risks and benefits of circumcision, the medical and non-medical indications, penile block and aftercare, expressed an understanding of penile block, aftercare and bleeding, signed the consent form, all questions were answered, a 20 minute discussion. We await clearance by the right of way clearer. cc: Pee MARCUS
--- NOTE | 2020-12-09 16:42 | OBDS ---
[facility] Obstetrical Discharge Sum. Obstetrical Discharge Summary Date: Dec 07, 2020 : 1 Term: 1 Pre-term: 0 Abortions: 0 Livin VDRL: ABO Blood Group (A) Rh: Positive Rubella: Immune Labor IOL secondary to diagnosis of pancreatitis Delivery Primary low transverse section for nonreassuring heart tracing, intolerance of labor Sex: Male Infant Weight: grams (3260) Anesthesia: Regional Anesthesia A/P, Post Course List any complications Admission diagnosis: Abdominal pain, pancreatitis Discharge diagnosis: Postoperative day 2 status post primary low transverse section Condition at Discharge: Stable Discharge Instructions: Home Activity: As tolerated, no driving while on narcotic pain medication, nothing in vagina for 6 weeks Diet: As Medications: See med rec Follow-up: 2 weeks for incision check KUNAL MILAN MD Dec 09, 2020 16:42
== END 2020-12-07 11:55 | disposition home or self-care (01) | DRG 771 ==
LOC: M LDO 15:26 → M PED 23:53 → M OBS 12-04 14:16 → M LDI 12-04 20:54 → M LDO 12-04 20:58 → M LDI 12-04 20:59 → M OBS 12-06 01:20
PROVIDERS: ADMIT Specialist; ATTEND Obstetrics & Gynecology
PROC: 10907ZC Drainage of Amniotic Fluid, Therapeutic from Products of Conception, Via Natural or Artificial Opening (ICD-10-PCS; 2020-12-05)
PROC: 3E0P7GC Introduction of Other Therapeutic Substance into Female Reproductive, Via Natural or Artificial Opening (ICD-10-PCS; 2020-12-05)
PROC: 10D00Z1 Extraction of Products of Conception, Low, Open Approach (ICD-10-PCS; principal; 2020-12-05 22:56)
DX: O99.62 Diseases of the digestive system complicating childbirth (principal); K85.10 Biliary acute pancreatitis without necrosis or infection; K80.20 Calculus of gallbladder without cholecystitis without obstruction; O99.214 Obesity complicating childbirth; E66.9 Obesity, unspecified; Z3A.38 38 weeks gestation of pregnancy; O76 Abnormality in fetal heart rate and rhythm complicating labor and delivery; Z37.0 Single live birth

== ENCOUNTER 2020-12-21 14:07 | Emergency (ER) | payer OTHER ==
[~2020-12-21] VITALS: Ht 157.5 cm; Wt 109.1 kg
[~2020-12-21 14:07] MED LIST changes: +ACET-683 PO; +COLA100C5 PO; +IBUP-1022 PO; +OXYC-517 PO
--- OUTSIDE RECORDS SUMMARY | 2020-12-21 14:13 | CCD ---
Author Author [facility] Address Unknown Phone Unavailable Care Team Providers Care Residential Substance Abuse Counselor Name Role Phone Maring, Noe PA Unavailable [...] is protected by Article 27-F of the [place] State Public Health law. If you continue you may have access to information: Regarding HIV / AIDS; Provided by facilities licensed or operated by the [facility] Office of Mental Health; or Provided by the [facility] Office for People With Developmental Disabilities. If such information is present, then the following [facility] mandated warning applies: This information has [...] law may result in a fine or skilled nursing sentence or both. A general authorization for the release of medical or other information is NOT sufficient authorization for further disc losure. Encounters Encounter Providers Location Date Indications Data Source(s ) Outpatient Attender: Noe PERKINS 09/01/19 04:14:46 PM EDT - 08/31/2020 04:42:27 PM EDT [facility] ([facility] ) Medications No Information Insurance Providers Payer name Policy type / Coverage type Policy ID Covered democrat ID Covered democrat's relationship to hanson Policy Hanson Plan Information / [id number] Other 00 [id number] [facility] [id number] FA2 [id number] [facility] [id number] Problems, Conditions, and Diagnoses No Information Surgeries/Procedures No Information Results ID Date Data Source [id number] 12/04/2020 09:17:00 PM EDT [facility] Name Value Range Interpretation Code Description Data Huong rce(s) Supporting Document(s) SARS coronavirus 2 RNA [Presence] in Res piratory specimen by JACKY with probe detection [facility] This lab was ordered by [facility] a nd reported by [facility]. Procedure Social History No Information
[2020-12-21 15:01] LABS: BASO % 0.4 % (0.0-1.0); EOS # 0.5 10^3/uL (0.0-0.5); EOS % 5.8 % (0.0-3.0); HEMATOCRIT 38.8 % (36.0-47.0); HEMOGLOBIN 12.7 g/dl (12.0-15.5); LYMPH # 2.9 10^3/uL (1.5-5.0); MEAN CORPUSCULAR HEMOGLOBIN 29.5 pg (27.0-33.0); MEAN CORPUSCULAR HGB CONC 32.7 g/dl (32.0-36.5); MEAN CORPUSCULAR VOLUME 90.2 fl (80.0-96.0); MONO # 0.7 10^3/uL (0.0-0.8); MONO % 8.2 % (2.0-8.0); NEUTROPHILS # 4.7 10^3/uL (1.5-8.5); NEUTROPHILS % 53.2 % (36.0-66.0); PLATELET COUNT, AUTOMATED 578 10^3/uL (150-450); WHITE BLOOD COUNT 8.9 10^3/uL (4.0-10.0)
[2020-12-21 15:36] LABS: ALBUMIN 3.3 GM/DL (3.2-5.2); ALT/SGPT 31 U/L (12-78); BILIRUBIN,DIRECT < 0.1 MG/DL (0.0-0.2); BILIRUBIN,TOTAL 0.4 MG/DL (0.2-1.0); LIPASE 3615 U/L (73-393); TOTAL PROTEIN 7.1 GM/DL (6.4-8.2)
--- OUTSIDE RECORDS SUMMARY | 2020-12-21 15:44 | CCD ---
Author Author [facility] Address Unknown Phone Unavailable Care Team Providers Care Ceo And Founder Name Role Phone Maring, Noe PA Unavailable [...] is protected by Article 27-F of the [place] State Public Health law. If you continue you may have access to information: Regarding HIV / AIDS; Provided by facilities licensed or operated by the [facility] Office of Mental Health; or Provided by the [facility] Office for People With Developmental Disabilities. If such information is present, then the following [facility] mandated warning applies: This information has been [...] law may result in a fine or snf sentence or both. A general authorization for the release of medical or other information is NOT sufficient authorization for further disc losure. Encounters Encounter Providers Location Date Indications Data Source(s ) Outpatient Attender: Noe PERKINS 09/01/19 04:14:46 PM EDT - 08/31/2020 04:42:27 PM EDT [facility] ([facility] ) Medications No Information Insurance Providers Payer name Policy type / Coverage type Policy ID Covered libertarian ID Covered libertarian's relationship to hanson Policy Hanson Plan Information / [id number] Other 00 [id number] [facility] [id number] FA2 [id number] [facility] [id number] Problems, Conditions, and Diagnoses No Information Surgeries/Procedures No Information Results ID Date Data Source [id number] 12/04/2020 09:17:00 PM EDT [facility] Name Value Range Interpretation Code Description Data Huong rce(s) Supporting Document(s) SARS coronavirus 2 RNA [Presence] in Res piratory specimen by JACKY with probe detection [facility]GATIVE [facility] This lab was ordered by [facility] a nd reported by [facility]. Procedure Social History No Information
--- NOTE | 2020-12-21 15:59 | REP ---
INDICATION: RUQ pain, history of gallstones. COMPARISON: 10/28/2020 TECHNIQUE: Grayscale imaging in the right upper quadrant. FINDINGS: Liver is homogeneous without focal hepatic mass, intrahepatic biliary dilatation, Anel Paddock ascites or hepatomegaly gallbladder shows wall thickness 2.9 mm and it has echogenic sludge and shadowing stones. Stones are mobile. It is partly contracted. No sonographic Rivas sign. Common duct 3.9 mm without a common duct stone. Pancreas is limited evaluation, the portions seen is grossly unremarkable. Right kidney 11.4 x 5.4 x 3.7 cm without hydronephrosis or other acute finding. IMPRESSION: 1. Cholelithiasis with the partially contracted gallbladder and shadowing stones. Wall thickness 2.9 mm, upper normal. Common duct 3.9 mm and normal. No sonographic Rivas sign. No intrahepatic biliary dilatation. No ascites. 2. Liver, limited portion of pancreas and the right kidney seen were all grossly intact. <Electronically signed by Basil Packer > 12/21/20 [id number]
[2020-12-21] MEDS ORDERED: NS 1,000 ML IV ONE (16:55)
[2020-12-21] MEDS ORDERED: ISOVUE-370 76% 100ML VIAL As Ordered ONE (16:55)
[2020-12-21 17:08] LABS: AMYLASE 235 U/L (25-115)
--- NOTE | 2020-12-21 18:22 | REPVR ---
PROCEDURE INFORMATION: Exam: CT Abdomen And Pelvis With Contrast Exam date and time: 12/21/2020 5:02 PM Age: 25 years old Clinical indication: Abdominal pain; Prior surgery; Surgery date: <1 month; Additional info: Pancreatitis TECHNIQUE: Imaging protocol: Computed tomography of the abdomen and pelvis with contrast. Radiation optimization: All CT scans at this facility use at least one of these dose optimization techniques: automated exposure control; mA and/or kV adjustment per patient size (includes targeted exams where dose is matched to clinical indication); or iterative reconstruction. Contrast material: ISOVUE 370; Contrast volume: 100 ml; Contrast route: INTRAVENOUS (IV); COMPARISON: ABD COMPLETE US 12/03/2020 8:17 PM FINDINGS: Liver: Liver measures 18 cm in craniocaudal span. Gallbladder and bile ducts: Normal. No calcified stones. No ductal dilation. Pancreas: Normal. No ductal dilation. Spleen: Normal. No splenomegaly. Adrenal glands: Normal. No mass. Kidneys and ureters: 2.3 mm calculus upper pole left kidney. No hydronephrosis. Stomach and bowel: There are scattered colonic diverticula. Appendix: No evidence of appendicitis. Intraperitoneal space: Unremarkable. No free air. No significant fluid collection. Vasculature: Unremarkable. No abdominal aortic aneurysm. Lymph nodes: Unremarkable. No enlarged lymph nodes. Urinary bladder: Unremarkable as visualized. Reproductive: Unremarkable as visualized. Bones/joints: Unremarkable. No acute fracture. Soft tissues: Umbilical hernia measuring 7 mm in diameter with no signs of strangulation. Other findings: Healed transverse lower abdominal incision anteriorly. IMPRESSION: 1. No acute findings. No CT indications of pancreatitis 2. Scattered colonic diverticula. No diverticulitis Electronically signed by: Stephanie Rodriguez On 12/21/2020 18:22:28 PM
[2020-12-21 18:53] VITALS: BP 138/78
[2020-12-21] MEDS ORDERED: ONDA4TAB6 PO (18:56)
== END 2020-12-21 19:07 | disposition home or self-care (01) ==
LOC: M ED 14:07
DX: K85.90 Acute pancreatitis without necrosis or infection, unspecified (principal); K80.40 Calculus of bile duct with cholecystitis, unspecified, without obstruction; Z88.1 Allergy status to other antibiotic agents; Z88.2 Allergy status to sulfonamides
CPT/HCPCS: 36415; 74177; 76705; 80047; 80076; 81001; 82150; 83690; 85025; 87086; 96360; 96361; 99284; Q9967

== ENCOUNTER → 2020-12-23 | Outpatient (CLI) | payer OTHER ==
[~2020-12-23] MED LIST changes: +ONDA4TAB6 PO
[2020-12-23 10:20] LABS: BASO % 0.5 % (0.0-1.0); EOS # 0.6 10^3/uL (0.0-0.5); EOS % 7.5 % (0.0-3.0); HEMATOCRIT 39.2 % (36.0-47.0); LYMPH # 2.8 10^3/uL (1.5-5.0); LYMPH % 37.8 % (24.0-44.0); MEAN CORPUSCULAR HEMOGLOBIN 29.9 pg (27.0-33.0); MEAN CORPUSCULAR HGB CONC 33.2 g/dl (32.0-36.5); MEAN CORPUSCULAR VOLUME 90.1 fl (80.0-96.0); MONO # 0.7 10^3/uL (0.0-0.8); MONO % 9.3 % (2.0-8.0); NEUTROPHILS # 3.2 10^3/uL (1.5-8.5); NEUTROPHILS % 44.5 % (36.0-66.0); PLATELET COUNT, AUTOMATED 547 10^3/uL (150-450); RED BLOOD COUNT 4.35 10^6/uL (4.00-5.40); WHITE BLOOD COUNT 7.3 10^3/uL (4.0-10.0)
[2020-12-23 12:37] LABS: ALBUMIN 3.3 GM/DL (3.2-5.2); ALT/SGPT 27 U/L (12-78); AMYLASE 38 U/L (25-115); BILIRUBIN,TOTAL 0.6 MG/DL (0.2-1.0); BLOOD UREA NITROGEN 11 MG/DL (7-18); CALCIUM LEVEL 9.8 MG/DL (8.5-10.1); CARBON DIOXIDE LEVEL 27 MEQ/L (21-32); CHLORIDE LEVEL 107 MEQ/L (98-107); CREATININE FOR GFR 0.72 MG/DL (0.55-1.30); GLOMERULAR FILTRATION RATE > 60.0 (>60); GLUCOSE, FASTING 87 MG/DL (70-100); LIPASE 82 U/L (73-393); POTASSIUM SERUM 4.5 MEQ/L (3.5-5.1); SODIUM LEVEL 142 MEQ/L (136-145); TOTAL PROTEIN 6.9 GM/DL (6.4-8.2)
== END ==
LOC: M LAB 09:30
PROVIDERS: ATTEND Physician Assistant Medical
DX: K85.90 Acute pancreatitis without necrosis or infection, unspecified (principal)

== ENCOUNTER 2021-01-05 23:29 | Inpatient (IN) | payer OTHER ==
[~2021-01-05] VITALS: Ht 160 cm; Wt 111.7 kg
--- OUTSIDE RECORDS SUMMARY | 2021-01-05 23:34 | CCD ---
Author Author [facility] Organization [facility] Address Unknown Phone Unavailable Care Team Providers Care Civil Engineering Manager Name Role Phone Maring, Noe PA Unavailable Unavailable Maring, Neo PA Unavailable Unavailable Maring, Noe PA Unavailable [...] Unavailable Unavailable Maring, Noe PA Unavailable Unavailable Joya YE MD Unavailable Unavailable Joya YE MD Unavailable Unavailable Joya YE MD Unavailable Unavailable Joya YE MD Unavailable Unavailable Joya YE MD Unavailable Unavailable Joya YE MD Unavailable Unavailable Joya YE MD Unavailable Unavailable Joya YE MD Unavailable Unavailable Joya YE MD Unavailable Unavailable Joya YE MD Unavailable Unavailable Joya YE MD Unavailable Unavailable Joya YE MD Unavailable Unavailable Joya YE MD Unavailable Unavailable Joya YE MD Unavailable Unavailable Joya YE MD Unavailable Unavailable Joya YE MD Unavailable Unavailable Joay YE MD Unavailable Unavailable Joya YE MD Unavailable Unavailable Joya YE MD Unavailable Unavailable Joya YE MD Unavailable Unavailable Joya YE MD Unavailable Unavailable Joya YE MD Unavailable Unavailable Joya YE MD Unavailable Unavailable Joya YE MD Unavailable Unavailable Joya YE MD Unavailable Unavailable Joya YE MD Unavailable Unavailable Joya YE MD Unavailable Unavailable Joya YE MD Unavailable Unavailable YE, J AIDE MD Unavailable Unavailable YE, J AIDE MD Unavailable Unavailable YE, J AIDE MD Unavailable Unavailable YE, J AIDE MD Unavailable Unavailable YE, J AIDE MD Unavailable Unavailable YE, J AIDE MD Unavailable Unavailable YE, J AIDE MD Unavailable Unavailable YE, J AIDE MD Unavailable Unavailable YE, J AIDE MD Unavailable Unavailable YE, J AIDE MD Unavailable Unavailable YE, J AIDE MD Unavailable Unavailable YE, J AIDE MD Unavailable Unavailable YE, J AIDE MD Unavailable Unavailable YE, J AIDE MD Unavailable Unavailable YE, J AIDE MD Unavailable Unavailable YE, J AIDE MD Unavailable Unavailable YE, J AIDE MD Unavailable Unavailable YE, J AIDE MD Unavailable Unavailable YE, J AIDE MD Unavailable Unavailable YE, J AIDE MD Unavailable Unavailable YE, J AIDE MD Unavailable Unavailable YE, J AIDE MD Unavailable Unavailable YE, J AIDE MD Unavailable Unavailable YE, J AIDE MD Unavailable Unavailable YE, J AIDE MD Unavailable Unavailable YE, J AIDE MD Unavailable Unavailable Re-disclosure Warning The records that [...] is protected by Article 27-F of the [facility] Public Health law. If you continue you may have access to information: Regarding HIV / AIDS; Provided by facilities licensed or operated by the [facility] Office of Mental Health; or Provided by the [facility] Office for People With Developmental Disabilities. If such information is present, then the following [facility] mandated warning applies: This information has been [...] law may result in a fine or care home sentence or both. A general authorization for the release of medical or other information is NOT sufficient authorization for further disc losure. Encounters Encounter Providers Location Date Indications Data Source(s ) Outpatient Referrer: AIDE YE MD 01/01/2021 11:57:42 A M EST [facility] Outpatient Attender: Noe Cho GREGORIO 09/01/19 04:14:46 PM EDT - 08/31/2020 04:42:27 PM EDT [facility] ([facility] ) Medications No Information Insurance Providers Payer name Policy type / Coverage type Policy ID Covered republican ID Covered republican's relationship to hanson Policy Hanson Plan Information / [id number] Other 00 [id number] [facility] [id number] FA2 [id number] [facility] [id number] Problems, Conditions, and Diagnoses No Information Surgeries/Procedures No Information Results ID Date Data Source [id number] 01/01/2021 03:36:00 PM [facility] ABDOMEN LIMITEDCLINICAL HISTORY: Biliary acute pancreatitis without necrosis or infection. Right upper quadrant pain. Gallstones.COMPARISON: None available.FINDINGS: Gallbladder: Gallbladder filled with gallstones. No sludge, pericholecystic fluid, wall thickening, or focal tenderness identified.Bile ducts: No intra or extrahepatic biliary ductal dilatation. Common bile duct measures 3.6 mm.Liver: Measures 16.6 cm. Normal echogenicity and echotexture. No masses seenPancreas: Visualized portions are within normal limits.IMPRESSION: Cholelithiasis without sonographic evidence of cholecystitis.Dictated by: MADI ROWLEY M.D. on 01/01/2021lectronically Signed by: MADI ROWLEY M.D. on 01/01/2021 04:10 PMTranscribed by: rhina on 01/01/2021 04:10 PMCDS G code: ,CDS Modifier: ,cc: Name Value Range Interpretation Code Description Data Huong rce(s) Supporting Document(s) ID Date Data Source [id number] 01/01/2021 05:53:31 PM EST [facility] Name Value Range Interpretation Code Description Data Huong rce(s) Supporting Document(s) WBC 9.3 10*3/uL (4.1-11.0) [facility] [place] [facility] [place] RBC 4.40 10*6/uL (4.00-5.40) [facility] [place] [facility] [facility] [place] HGB 13.1 g/dL (12.0-16.0) [facility] [place] HCT 38.7 % (36.0-47.0) [facility] [place] MCV 88.1 fL (80.0-95.0) [facility] [place] [facility] MCH 29.8 pg (27.0-32.0) [facility] [place] MCHC 33.8 g/dL (32.0-36.0) [facility] [place] RDW 13.6 % (10.5-14.5) [facility] [place] [facility] PLT 432 10*3/uL (150-450) [facility] [place] MPV 8.3 fL (7.1-10.7) [facility] [place] [facility] [place] [facility] ID Date Data Source [id number] 01/01/2021 06:19:38 PM EST [facility] [place] [facility] Name Value Range Interpretation Code Description Data Huong rce(s) Supporting Document(s) SODIUM 141 mmol/L (136-145) [facility] [place] [facility] CORE POTASSIUM 4.2 mmol/L (3.6-5.2) [facility] [place] [facility] CHLORIDE 104 mmol/L (100-108) [facility] [place] [facility] - CORE CO2 26 mmol/L (22-31) [facility] [place] [facility] - CORE ANION GAP 11 mmol/L (7-16) [facility] [place] [facility] - CORE UREA NITROGEN 7 mg/dL (7-24) [facility] [place] CREATININE 0.69 mg/dL (0.60-1.00) [facility] [place] BUN/CREAT RATIO 10.1 RATIO (10.0-20.0) [facility] [place] [facility] [place] CORE GLUCOSE 85 mg/dL (70-99) [facility] [place] of [facility] CORE CALCIUM 8.9 mg/dL (8.4-10.2) [facility] [place] of [employer] TOTAL PROTEIN 6.8 g/dL (6.4-8.2) Laboratory [facility] of [employer] ALBUMIN 3.4 g/dL (3.5-4.6) L [facility] [place] of [employer] [facility] [employer] GLOBULIN 3.4 g/dL (2.7-4.3) [facility] [place] of [employer] ALB/GLOB RATIO 1.0 RATIO Laboratory [place] [employer] ALKALINE PHOSPHATASE 141 U/L (45-117) H Laborator [facility] [place] [facility] [employer] BILIRUBIN,TOTAL 0.5 mg/dL (0.0-1.0) [facility] [employer] PLEASE NOTE:Total bilirubin results may be falselyelevated in patients taking Eltrombopag. AST (SGOT) 17 U/L (11-39) [facility] [place] [facility] [employer] ALT (SGPT) 36 U/L (12-78) [facility] [place] [facility] [employer] GFR >60 ml/min/1.73m2 (>59) Laboratory [facility] [employer] GFR ( AMER) >60 ml/min/1.73m2 (>59) [facility] [place] [facility] [employer] GFR INTERPRETATION [facility] [place] [facility] [employer] --NORMAL KIDNEY FUNCTION OR MILD DISEASE - GFR >OR= 60CHRONIC KIDNEY DISEASE - GFR 15 - 59RENAL FAILURE - GFR <15 Est. GFR calculation based on the MDRDstudy equation, which assumes a steadystate for creatinine. Est. GFR should notbe used for medication dosing. ID Date Data Source [id number] 01/01/2021 06:19:38 PM EST [facility] [employer] Name Value Range Interpretation Code Description Data Huong rce(s) Supporting Document(s) LIPASE 82 U/L (65-230) [facility] [place] [employer] ID Date Data Source [id number] 12/04/2020 09:17:00 PM EDT [facility] Name Value Range Interpretation Code Description Data Huong rce(s) Supporting Document(s) SARS coronavirus 2 RNA [Presence] in Res piratory specimen by JACKY with probe detection NEGATIVE [facility] This lab was ordered by [facility] a nd reported by [facility]. Procedure Social History No Information
[2021-01-06 00:30] LABS: BASO # 0.1 10^3/uL (0.0-0.2); BASO % 0.3 % (0.0-1.0); EOS # 0.5 10^3/uL (0.0-0.5); HEMATOCRIT 38.6 % (36.0-47.0); HEMOGLOBIN 12.9 g/dl (12.0-15.5); LYMPH # 3.3 10^3/uL (1.5-5.0); LYMPH % 19.8 % (24.0-44.0); MEAN CORPUSCULAR HEMOGLOBIN 29.1 pg (27.0-33.0); MEAN CORPUSCULAR HGB CONC 33.4 g/dl (32.0-36.5); MEAN CORPUSCULAR VOLUME 87.1 fl (80.0-96.0); MONO # 1.1 10^3/uL (0.0-0.8); MONO % 6.3 % (2.0-8.0); NEUTROPHILS # 11.6 10^3/uL (1.5-8.5); NEUTROPHILS % 70.1 % (36.0-66.0); PLATELET COUNT, AUTOMATED 409 10^3/uL (150-450); RED BLOOD COUNT 4.43 10^6/uL (4.00-5.40); WHITE BLOOD COUNT 16.6 10^3/uL (4.0-10.0)
[2021-01-06 00:59] LABS: CK-MB VALUE MASS < 1.0 NG/ML (<3.6); CPK CREATINE PHOSPHOKINASE 76 U/L (26-192); MB/CK RELATIVE INDEX 1.32 (< OR =4)
[2021-01-06 01:03] LABS: HCG, SERUM QUALITATIVE NEGATIVE (NEGATIVE)
[2021-01-06 01:12] LABS: ALBUMIN 3.1 GM/DL (3.2-5.2); ALT/SGPT 63 U/L (12-78); BILIRUBIN,DIRECT 0.2 MG/DL (0.0-0.2); BILIRUBIN,TOTAL 0.4 MG/DL (0.2-1.0); BLOOD UREA NITROGEN 13 MG/DL (7-18); CALCIUM LEVEL 8.6 MG/DL (8.5-10.1); CARBON DIOXIDE LEVEL 27 MEQ/L (21-32); CHLORIDE LEVEL 106 MEQ/L (98-107); CREATININE FOR GFR 0.93 MG/DL (0.55-1.30); GLOMERULAR FILTRATION RATE > 60.0 (>60); GLUCOSE, FASTING 95 MG/DL (70-100); LIPASE 21584 U/L (73-393); POTASSIUM SERUM 3.9 MEQ/L (3.5-5.1); SODIUM LEVEL 140 MEQ/L (136-145); TOTAL PROTEIN 6.8 GM/DL (6.4-8.2)
[2021-01-06 01:40] LABS: TROPONIN I < 0.02 NG/ML (< 0.10)
[2021-01-06] MEDS ORDERED: NS 1,000 ML IV ONE ×2 (02:15→03:50)
[2021-01-06] MEDS ORDERED: ISOVUE-370 76% 100ML VIAL As Ordered ONE (02:18)
--- OUTSIDE RECORDS SUMMARY | 2021-01-06 02:49 | CCD ---
Author Author [facility] Organization [facility] Address Unknown Phone Unavailable Care Team Providers Care Stripper Latex Name Role Phone Maring, Noe PA Unavailable [...] Unavailable Unavailable Joya YE MD Unavailable Unavailable Jyoa YE MD Unavailable Unavailable Joya YE MD Unavailable Unavailable Joya YE MD Unavailable Unavailable Joya YE MD Unavailable Unavailable Joya EY MD Unavailable Unavailable Joya YE MD Unavailable [...] is protected by Article 27-F of the [facility] Public Health law. If you continue you may have access to information: Regarding HIV / AIDS; Provided by facilities licensed or operated by the [facility] Office of Mental Health; or Provided by the [facility] Office for People With Developmental Disabilities. If such information is present, then the following [facility] mandated warning applies: This information [...] law may result in a fine or usp sentence or both. A general authorization for the release of medical or other information is NOT sufficient authorization for further disc losure. Encounters Encounter Providers Location Date Indications Data Source(s ) Outpatient Referrer: AIDE YE MD 01/01/2021 11:57:42 A M EST [facility] Outpatient Attender: Noe De La Rosaatif PERKINS 09/01/19 04:14:46 PM EDT - 08/31/2020 04:42:27 PM EDT [facility] ([facility] ) Medications No Information Insurance Providers Payer name Policy type / Coverage type Policy ID Covered republican ID Covered republican's relationship to hanson Policy Hanson Plan Information / [id number] Other 00 [id number] [facility] [id number] FA2 [id number] [facility] [id number] Problems, Conditions, and Diagnoses No Information Surgeries/Procedures No Information Results ID Date Data Source [id number] [facility]2021 03:36[facility] ABDOM[facility] LIMITEDCLINICAL HISTORY: Biliary acute [...] rce(s) Supporting Document(s) ID Date Data Source [id number] 01/01/2021 05:53:31 PM EST [facility] Name Value Range Interpretation Code Description Data [...] 432 10*3/uL (150-450) [facility] [place] [facility] MPV 8.3 fL (7.1-10.7) [facility] [place] [facility] ID Date Data Source [id number] 01/01/2021 06:19:38 PM EST [facility] [place] [facility] [facility] [place] [facility] Name Value Range Interpretation Code Description Data Huong rce(s) Supporting Document(s) SODIUM 141 mmol/L (136-145) [facility] [place] [facility] CORE POTASSIUM 4.2 mmol/L (3.6-5.2) [facility] [place] [facility] CHLORIDE 104 mmol/L (100-108) [facility] [place] [facility] CO2 26 mmol/L (22-31) [facility] [place] [facility] CORE ANION GAP 11 mmol/L (7-16) [facility] [place] [facility] CORE UREA NITROGEN 7 mg/dL (7-24) [facility] [place] [facility] [place] - CORE CREATININE 0.69 mg/dL (0.60-1.00) [facility] [place] [facility] BUN/CREAT RATIO 10.1 RATIO (10.0-20.0) [facility] [place] [facility] CORE GLUCOSE 85 mg/dL (70-99) [facility] [place] [facility] CALCIUM 8.9 mg/dL (8.4-10.2) [facility] [place] [facility] [employer] TOTAL PROTEIN 6.8 g/dL (6.4-8.2) Laboratory [place] [facility] [employer] - EXPO ALBUMIN 3.4 g/dL (3.5-4.6) L [facility] [place] [facility] [employer] - CORE GLOBULIN 3.4 g/dL (2.7-4.3) [facility] [place] [facility] [employer] - [facility]PO ALB/GLOB RATIO 1.0 RATIO [facility] [place] [facility] [employer] ALKALINE PHOSPHATASE 141 U/L (45-117) H Laborator y [place] [facility] [employer] - [facility] BILIRUBIN,TOTAL 0.5 mg/dL (0.0-1.0) [facility] [facility] [employer] PLEASE NOTE:Total bilirubin results may be falselyelevated in patients taking Eltrombopag. AST (SGOT) 17 U/L (11-39) [facility] [place] [facility] [employer] ALT (SGPT) 36 U/L (12-78) [facility] [place] [facility] [employer] GFR >60 ml/min/1.73m2 (>59) [facility] [employer] GFR ( AMER) >60 ml/min/1.73m2 (>59) [facility] [place] [facility] [employer] GFR INTERPRETATION [facility] [place] [facility] [employer] --NORMAL KIDNEY FUNCTION OR MILD DISEASE - GFR >OR= 60CHRONIC KIDNEY DISEASE - GFR 15 - 59RENAL FAILURE - GFR <15 Est. GFR calculation based on the MDRDstudy equation, which assumes a steadystate for creatinine. Est. GFR should notbe used for medication dosing. ID Date Data Source [id number] 01/01/2021 06:19:38 PM EST [facility] [employer] Name Value Range Interpretation Code Description Data Huong rce(s) Supporting Document(s) LIPASE 82 U/L (65-230) [facility] [place] [employer] ID Date Data Source [id number] 12/04/2020 09:17:00 PM EDT [facility] Name Value Range Interpretation Code Description Data Huong rce(s) Supporting Document(s) SARS coronavirus 2 RNA [Presence] in Res piratory specimen by JACKY with probe detection NEGATIVE [facility] This lab was ordered by [facility] a nd reported by [facility]. Procedure Social History No Information
--- NOTE | 2021-01-06 02:54 | REPVR ---
PROCEDURE INFORMATION: Exam: XR Chest Exam date and time: 01/06/2021 12:03 AM Age: 25 years old Clinical indication: Pain; Angina pectoris; Additional info: Chest pain TECHNIQUE: Imaging protocol: XR of the chest. Views: 1 view. COMPARISON: CT ABD PELVIS WITH CONTRAST 12/21/2020 5:00 PM FINDINGS: Lungs: Unremarkable. No consolidation. Pleural spaces: Unremarkable. No pleural effusion. No pneumothorax. Heart/Mediastinum: Unremarkable. No cardiomegaly. Bones/joints: Unremarkable. IMPRESSION: No acute findings. Electronically signed by: Lul Pantoja On 01/06/2021 02:53:59 AM
--- NOTE | 2021-01-06 03:20 | REPVR ---
PROCEDURE INFORMATION: Exam: CTA Chest With Contrast Exam date and time: 01/06/2021 2:55 AM Age: 25 years old Clinical indication: Other: SOB, rule out pe TECHNIQUE: Imaging protocol: Computed tomographic angiography of the chest with contrast. 3D rendering (Not supervised by radiologist): MIP and/or 3D reconstructed images were created by the technologist. Radiation optimization: All CT scans at this facility use at least one of these dose optimization techniques: automated exposure control; mA and/or kV adjustment per patient size (includes targeted exams where dose is matched to clinical indication); or iterative reconstruction. Contrast material: ISOVUE 370; Contrast volume: 100 ml; Contrast route: INTRAVENOUS (IV); COMPARISON: CR PORTABLE CHEST X-RAY 01/06/2021 1:18 AM FINDINGS: Pulmonary arteries: Normal. No pulmonary emboli. Aorta: Unremarkable. No aortic aneurysm. No aortic dissection. Thyroid: Partially visualized stress and colitis stable probable in the space 1.5 x 1 cm low-attenuation right thyroid lobe lesion. Lungs: Unremarkable. No consolidation. No masses. Pleural spaces: Unremarkable. No pneumothorax. No pleural effusion. Heart: Unremarkable. No cardiomegaly. No pericardial effusion. Lymph nodes: Unremarkable. No enlarged lymph nodes. Bones/joints: Unremarkable. No acute fracture. Soft tissues: Unremarkable. IMPRESSION: No acute findings. COMMENTS: Consistent with the [employer]'s Incidental Findings Committee white paper (J Am Troy Radiol 2015): In patients under 35 years old with an incidental thyroid nodule equal to or greater than [address], MRI or extrathyroidal US, further evaluation with dedicated thyroid US is recommended for patients with normal life expectancy and without comorbidities. For smaller nodules without suspicious features, no further evaluation or follow up is recommended. Electronically signed by: Lul Pantoja On 01/06/2021 03:19:50 AM
--- NOTE | 2021-01-06 03:24 | REPVR ---
PROCEDURE INFORMATION: Exam: CT Abdomen And Pelvis With Contrast Exam date and time: 01/06/2021 2:55 AM Age: 25 years old Clinical indication: Other: Pancreatitis and ruq pain concerning for cholecystitis TECHNIQUE: Imaging protocol: Computed tomography of the abdomen and pelvis with contrast. Radiation optimization: All CT scans at this facility use at least one of these dose optimization techniques: automated exposure control; mA and/or kV adjustment per patient size (includes targeted exams where dose is matched to clinical indication); or iterative reconstruction. Contrast material: ISOVUE 370; Contrast volume: 100 ml; Contrast route: INTRAVENOUS (IV); COMPARISON: CT ABD PELVIS WITH CONTRAST 12/21/2020 5:00 PM FINDINGS: Liver: Mild hepatomegaly and steatosis. Gallbladder and bile ducts: Normal. No calcified stones. No ductal dilation. Pancreas: Normal. No ductal dilation. Spleen: Normal. No splenomegaly. Adrenal glands: Normal. No mass. Kidneys and ureters: Normal. No hydronephrosis. Stomach and bowel: Mild bowel wall thickening involving small bowel loops predominantly in the left upper abdomen. Appendix: No evidence of appendicitis. Intraperitoneal space: Unremarkable. No free air. No significant fluid collection. Vasculature: Unremarkable. No abdominal aortic aneurysm. Lymph nodes: Unremarkable. No enlarged lymph nodes. Urinary bladder: Unremarkable as visualized. Reproductive: Involuting bilateral ovarian cysts with trace free fluid in the cul-de-sac. Bones/joints: Unremarkable. No acute fracture. Soft tissues: Fat containing umbilical hernia. IMPRESSION: 1. Mild hepatomegaly and steatosis. 2. Involuting bilateral ovarian cysts with trace free fluid in the cul-de-sac. Pelvic ultrasound can be used for further characterization if clinically warranted. 3. Mild bowel wall thickening involving small bowel loops predominantly in the left upper abdomen. Under distension is favored. Enteritis cannot be completely excluded. 4. Normal appendix. Electronically signed by: Lul Pantoja On 01/06/2021 03:24:08 AM
--- NOTE | 2021-01-06 03:26 | REPVR ---
PROCEDURE INFORMATION: Exam: US Abdomen, Limited; Right Upper Quadrant Exam date and time: 01/06/2021 2:34 AM Age: 25 years old Clinical indication: Abdominal pain; Acute; Additional info: Ruq pain, ? cholecystitis, choledocholithiasis TECHNIQUE: Imaging protocol: US abdomen. Real time ultrasound with image documentation. Limited exam focused on the right upper quadrant. COMPARISON: GALLBLADDER US 12/21/2020 3:13 PM FINDINGS: Liver: Hepatomegaly and steatosis. Gallbladder: Suggestion of cholelithiasis and biliary sludge. No specific evidence of acute cholecystitis. Common bile duct: Normal. No stones. No dilation. Pancreas: Visualized pancreas is unremarkable. Right kidney: Normal. No mass. No hydronephrosis. IMPRESSION: 1. Hepatomegaly and steatosis. 2. Suggestion of cholelithiasis and biliary sludge. No specific evidence of acute cholecystitis. Electronically signed by: Lul Pantoja On 01/06/2021 03:25:46 AM
[2021-01-06 04:07] LABS: APPEARANCE, URINE CLEAR (CLEAR); BACTERIA, URINE AUTO 1+ (NEGATIVE); BILIRUBIN, URINE AUTO NEGATIVE (NEGATIVE); BLOOD, URINE BLOOD NEGATIVE (NEGATIVE); COLOR, URINE STRAW (YELLOW); GLUCOSE, URINE (UA) AUTO NEGATIVE (NEGATIVE); KETONE, URINE AUTO NEGATIVE (NEGATIVE); LEUKOCYTE ESTERASE, URINE AUTO TRACE (NEGATIVE); NITRITE, URINE AUTO NEGATIVE (NEGATIVE); PROTEIN, URINE AUTO NEGATIVE (NEGATIVE); RBC, URINE AUTO 1 /HPF (0-3); SPECIFIC GRAVITY URINE AUTO 1.008 (1.002-1.035); SQUAMOUS EPITHELIAL CELL UR AU 6 /HPF (0-6); UROBILINOGEN, URINE AUTO 0.2 mg/dL (0.0-2.0); WBC, URINE AUTO 3 /HPF (0-3)
[2021-01-06] MEDS ORDERED: ACETAMINOPHEN TAB 650MG DOSE (2X325MG) PO PRN (04:50)
[2021-01-06] MEDS ORDERED: KETOROLAC 30 MG/ML 1ML VIAL IV PRN (04:50)
[2021-01-06] MEDS ORDERED: ONDANSETRON 4MG/2ML VIAL IV PRN (04:50)
[2021-01-06] MEDS ORDERED: IBUPROFEN 400MG TAB PO PRN (04:50)
[2021-01-06] MEDS ORDERED: PANTOPRAZOLE 40MG VIAL (C9113 PER 1) IV ONE (04:55)
--- NOTE | 2021-01-06 05:20 | HPEPDOC ---
[facility] Medical History & Physical Date of Admission Jan 06, 2021 Date of Service: Jan 06, 2021 Attending Physician: LENORE TORRES MD History and Physical CHIEF COMPLAINT: Abdominal pain HISTORY OF PRESENT ILLNESS: Patient is an 25-year-old female who presents with epigastric pain of a larissa, tightening nature scale that 8 out of 10. Patient reports that 2 days ago the pain was alleviated with ibuprofen however, today after administering oxycodone (which was given for her ), she still was in pain. Patient reports that the pain is intermittent and lasts approximately 45 minutes. Patient has had 2 previous episodes of pancreatitis. 1 during her , during which she was found to have gallstones. The patient presented approximately 2 weeks ago for pancreatitis to the ER. Patient reports that since having these episodes of pancreatitis, patient has been eating only chicken and Jell-O due to pain. Patient reports that she is not currently breast-feeding at this time. Patient reports chest pain associated with the epigastric pain. The chest pain is not pleuritic in nature. It is not worsened with pressure. The patient reports shortness of breath when she is lying in the right lateral recumbent position. Patient denies dyspnea on exertion. Patient denies nausea, vomiting, diarrhea, constipation. Patient denies fevers, chills, night sweats. Patient reports that she would like us to contact her mother, Temi Saenz for any clinical decision making if the patient is unable to make decisions for herself during her hospital stay, to be contacted at [phone]. PAST MEDICAL HISTORY: delivery, November Obesity PAST SURGICAL HISTORY: delivery, November SOCIAL HISTORY: Patient resides in [place] with her boyfriend, and new baby Denies smoking Denies alcohol use Denies drug use FAMILY HISTORY: Denies diseases in her family ALLERGIES: Please see below. REVIEW OF SYSTEMS: General: Patient denies fevers, chills, night sweats HEENT: Patient denies headaches Cardiovascular: Patient reports chest pain reported in HPI Respiratory: Patient denies shortness of breath, cough GI: Patient denies abdominal pain, nausea, vomiting, diarrhea, hematochezia, melena : Patient denies increased frequency or pain with urination Extremities: Patient denies swelling or pain in extremities Neurological: Patient denies numbness or tingling in legs Skin: Patient denies any new rashes or lesions. Hematologic: Patient denies any easy bruising. Lymphatic: Patient denies any lumps or bumps in neck, axilla, or groin HOME MEDICATIONS: Please see below. PHYSICAL EXAMINATION: VITAL SIGNS: See below. GENERAL APPEARANCE: In no acute distress, lying flat in the gurney, alert and oriented x3. HEENT: Normocephalic atraumatic, mucous membranes moist, clear speech, EOMI, no rhinorrhea. CARDIOVASCULAR: Regular rate and rhythm, distant heart sounds due to body habitus. LUNGS: Right upper lobe wheezing on exam, clear to auscultation bilaterally in all other lobes. ABDOMEN: Soft, tender in upper quadrants, well-healed delivery scar present horizontally at underwear line. MUSCULOSKELETAL: Upper and lower extremity strength 5 out of 5. EXTREMITIES: No clubbing, edema, radial and pedal pulses intact +2. NEUROLOGICAL: No focal motor deficits, no focal sensory deficits PSYCHIATRIC: Affect full and open, alert and oriented x3. LABORATORY DATA: See below. IMAGING: Chest x-ray, 01/06/2021no acute findings Gallbladder ultrasound, 01/06/2021Hepatomegaly and steatosis. Suggestion of cholelithiasis and biliary sludge. No specific evidence of acute cholecystitis. Abdomen/pelvis CT, 01/06/2021Mild hepatomegaly and steatosis. Involuting bilateral ovarian cysts with trace free fluid in the cul-de-sac. Pelvic ultrasound can be used for further characterization if clinically warranted. Mild bowel wall thickening involving small bowel loops predominantly in the left upper abdomen. Under distension is favored. Enteritis cannot be completely excluded. Normal appendix. CT angiogram chest, 01/06/2021 acute findings MICROBIOLOGY: Please see below. ASSESSMENT/PLAN: Patient is a 25-year-old female in the period who presents with acute pancreatitis. Patient has known cholelithiasis. She is being admitted for ERCP and cholecystectomy. #Acute pancreatitis N.p.o. diet Pain relief with ketorolac Pain relief with acetaminophen as needed Fluid resuscitation with lactated Ringer IV Zofran as needed MRCP ordered. Consider ERCP if MRCP is positive. #Cholelithiasis Consider surgery consult in the a.m. for cholecystectomy #Elevated D-dimer CT angiogram was negative Likely secondary to recent #Chest pain Likely secondary to GERD, given obesity and . Start IV pantoprazole #Fatty liver disease CT abdomen shows hepatic steatosis. #Abnormal urinalysis Patient is currently asymptomatic and does not warrant treatment Consider treatment with antibiotics if patient becomes symptomatic. VTE prophylaxis: Heparin [facility]position: [facility], expect at least 2 midnight stay. Vital Signs Vital Signs Date Time Temp Pulse Resp B/P (MAP) Pulse Ox O2 Delivery O2 Flow Rate FiO2 01/06/21 03:00 97.8 88 19 125/71 (89) 98 Room Air Laboratory Data Labs 24H Laboratory Tests 2 01/06/21 00:08: Immature Granulocyte % (Auto) 0.5, Neutrophils (%) (Auto) 70.1H, Lymphocytes (%) (Auto) 19.8L, Monocytes (%) (Auto) 6.3, Eosinophils (%) (Auto) 3.0, Basophils (%) (Auto) 0.3, Neutrophils # (Auto) 11.6H, Lymphocytes # (Auto) 3.3, Monocytes # (Auto) 1.1H, Eosinophils # (Auto) 0.5, Basophils # (Auto) 0.1, Nucleated Red Blood Cells % (auto) 0.0, D-Dimer, Quantitative 901.07H, Anion Gap 7L, Glomerular Filtration Rate > 60.0, Calcium Level 8.6, Total Bilirubin 0.4, Direct Bilirubin 0.2, Aspartate Amino Transf (AST/SGOT) 98H, Alanine Aminotransferase (ALT/SGPT) 63, Alkaline Phosphatase 156H, Total Creatine Kinase 76, Creatine Kinase MB < 1.0, Creatine Kinase MB Relative Index 1.32, Troponin I < 0.02, Total Protein 6.8, Albumin 3.1L, Albumin/Globulin Ratio 0.8L, Lipase 83156E, Thyroid Stimulating Hormone (TSH) 1.620, Human Chorionic Gonadotropin, Qual NEGATIVE 01/06/21 03:55: Urine Color STRAW, Urine Appearance CLEAR, Urine pH 7.0, Urine Specific [place] 1.008, Urine Protein NEGATIVE, Urine Glucose (Auto)(UA) NEGATIVE, Urine Ketones (Auto) NEGATIVE, Urine Blood NEGATIVE, Urine Nitrite NEGATIVE, Urine Bilirubin NEGATIVE, Urine Urobilinogen 0.2, Urine Leukocyte Esterase (Auto) TRACEH, Urine WBC (Auto) 3, Urine RBC (Auto) 1, Urine Hyaline Casts (Auto) 0, Urine Bacteria (Auto) 1+H, Urine Squamous Epithelial Cells 6, Urine Sperm (Auto) CBC/BMP Laboratory Tests 01/06/21 00:08 Home Medications Scheduled Acetaminophen (Acetaminophen) 500 Mg Tablet, 1,000 MG PO Q6H Ibuprofen (Ibuprofen) 600 Mg Tablet, 600 MG PO Q6H Scheduled PRN Ondansetron (Ondansetron Odt) 4 Mg Tab.rapdis, 1 TAB PO Q6-8HP PRN for nausea/vomiting Oxycodone HCl (Oxycodone HCl) 5 Mg Tablet, 5 MG PO Q6H PRN for PAIN LEVEL 7-10 Allergies Coded Allergies: Sulfa (Sulfonamide Antibiotics) (Verified Allergy, Unknown, 10/28/20) swelling throat mouth face, hives A-FIB/CHADSVASC A-FIB History Current/History of A-Fib/PAF?: No Current PO Anticoag Therapy: No GME ATTESTATION GME ATTESTATION My faculty preceptor for this patient encounter was physically present during the encounter and was fully available. All aspects of the patient interview, examination, medical decision making process, and medical care plan development were reviewed and approved by the faculty preceptor. The faculty preceptor is aware and concurs with the plan as stated in the body of this note and will attest to such by his/her cosignature. Ke Richardson DO Jan 06, 2021 05:20
[2021-01-06] MEDS ORDERED: OXYC-517 PO (05:45)
[2021-01-06] MEDS ORDERED: IBUP1TAB6 PO (05:45)
[2021-01-06] MEDS ORDERED: HOME MED LIST COMPLETE! XX SCH (05:45)
[2021-01-06] MEDS: LR 1,000 ML IV SCH ×4 (05:54→13:56)
[2021-01-06] MEDS: HEPARIN SOD (PORCINE) 5000UNITS/ML 1ML VIAL/SYRINGE SC SCH ×3 (06:09→20:58)
[2021-01-06 06:55] LABS: RSV AMPLIFICATION NEGATIVE (NEGATIVE)
--- NOTE | 2021-01-06 13:51 | REP ---
INDICATION: MRCP for pancreatitis. COMPARISON: None. TECHNIQUE: MIP reformatted 3-D images of the common bile duct and pancreatic duct were obtained along with source images in the axial and coronal scan planes. FINDINGS: The maximal dimension of the common bile duct is 4 mm. The common bile duct is seen to smoothly taper to the level of the ampulla of Vater. There is no abnormal pancreatic duct dilatation. The maximal diameter is 1.8 mm. Limited evaluation of the abdomen show no gross abnormalities. IMPRESSION: Within normal limits <Electronically signed by Xu Ochoa > 01/06/21 [id number]
[2021-01-06 14:00] VITALS: BP 129/74
--- NOTE | 2021-01-06 19:13 | IPNPDOC ---
Text Note Date of Service The patient was seen on 01/06/21. NOTE Subjective: Patient is a 25-year-old female presented with acute epigastric pain that she reported 8 out of 10. Patient reported that the pain began 2 days ago and was alleviated with ibuprofen however, today after administering oxycodone which she had for her she was still in pain. Patient reports pain is intermittent and last approximately 45 minutes. Patient's had 2 prior episodes of pancreatitis, wondering and will where she was found to have gallstones. Patient presented approximately 2 weeks ago for pancreatitis to the emergency department. Patient reports that she did have these episodes of pancreatitis she been eating only chicken and Jell-O due to pain. Patient reports that she is not currently breast-feeding at this time. Patient by the later parts of the day was stating that the pain had improved and the patient was able to tolerate a clear liquid diet. Patient had a very elevated lipase and states that the pain had finally improved. Patient denied any nausea or vomiting at this time. Review of systems: General: Patient denies fevers HEENT: Patient denies headaches Cardiovascular: Patient denies chest pain Respiratory: Patient denies shortness of breath, cough GI: Patient reports that the abdominal pain has improved and denies any nausea or vomiting : Patient denies increased frequency or pain with urination Extremities: Patient denies swelling or pain in extremities Neurological: Patient denies numbness or tingling in legs Physical exam: Vitals: See below General: Alert and oriented female patient who was laying in bed when I walked in. Patient does not appear to be in any acute distress. HEENT: Normocephalic, atraumatic, moist mucous membranes. Neck: No lymphadenopathy or thyromegaly Cardiac: Regular rate and rhythm, no murmurs, normal S1, normal S2 Pulm: Clear to auscultation bilaterally. No wheezes, rhonchi, rales Abd: Nondistended, tenderness to palpation in the epigastric area, no rebound tenderness, normal bowel sounds Ext: No edema bilateral lower extremities Labs: See below Imaging: MRCP performed without contrast performed on 01/06/2021 is reported to show within normal limits. Assessment/plan: 25-year-old female presented with epigastric pain was found to have elevated lipase who was diagnosed with acute pancreatitis. 1. Acute pancreatitis. Patient's diet has been advanced to low residue and low-fat diet. Continue pain relief with ketorolac and acetaminophen. Patient received 4 L of lactated Ringer's. IV Zofran as needed. MRCP was normal. If the patient is tolerating oral diet, patient be discharged tomorrow. I did have a long conversation with the patient about this plan stating that because she has had these bouts of pancreatitis, we need to ensure that she is tolerating an oral diet which is not worsening her abdominal pain prior to being able to safely discharge the patient. Patient seemed agreeable to this plan after I had spoken with her and I left the room. 2. Cholelithiasis. There is no general surgery coverage on 01/06/2021, the patient does not appear to have acute cholecystitis. Patient does have an appoint with general surgery tomorrow. If tolerating diet in the morning, patient be discharged with the hope to be able to get to her appointment at 2:45 in the morning. 3. Elevated D-dimer. CT angiogram negative for PE. Likely secondary to recent . 4. Chest pain. Likely secondary to GERD. Start pantoprazole. 5. Fatty liver disease. CT abdomen shows hepatic steatosis. 6. Abnormal urinalysis. Patient is currently asymptomatic does not warrant treatment. DVT Prophylaxis: Heparin Disposition: Pending tolerating diet, possible discharge tomorrow. VS,Fishbone, I+O VS, Fishbone, I+O Laboratory Tests 01/06/21 00:08 Vital Signs Date Time Temp Pulse Resp B/P (MAP) Pulse Ox O2 Delivery O2 Flow Rate FiO2 01/06/21 14:00 97.6 65 17 129/74 (92) 97 Room Air I&O- Last 24 Hours up to 6 AM 01/06/21 06:00 Intake Total 2000 ml Balance 2000 ml RENNY LUI DO Jan 06, 2021 19:13
[2021-01-06] MEDS ORDERED: IPRATROPIUM 0.5MG/ALBUTEROL 2.5MG INH SOL UD 3ML (DUONEB) NEB PRN (20:05)
[2021-01-06 20:46] VITALS: BP 156/91
[2021-01-06 22:00] VITALS: BP 144/80
--- NOTE | 2021-01-06 22:12 | ECGEPIP ---
[facility] Test Date: 2021-01-06 Pat Name: NATHALIA CONTRERAS Department: Room: [place] [id number] Gender: Female Financial Writer: : 1995 Requested By: CINTHYA Soni Order Number: [id number] Reading MD: Charlie Montana Measurements Intervals [place] Rate: 86 P: 34 CO: 174 QRS: 34 QRSD: 86 T: 17 QT: 374 QTc: 447 Interpretive Statements Normal sinus rhythm Poor R wave progression. Nonspecific ST-T abnormality. ST-T abnormality new compared with 01/06/2021 at 0:03 hours. Electronically Signed on 01-06-2021 22:11:59 EST by Charlie Montana
[2021-01-07] MEDS: HEPARIN SOD (PORCINE) 5000UNITS/ML 1ML VIAL/SYRINGE SC SCH (05:14)
[2021-01-07 05:36] VITALS: BP 122/78
[2021-01-07 06:48] LABS: HEMATOCRIT 35.3 % (36.0-47.0); HEMOGLOBIN 11.7 g/dl (12.0-15.5); MEAN CORPUSCULAR HEMOGLOBIN 29.1 pg (27.0-33.0); MEAN CORPUSCULAR HGB CONC 33.1 g/dl (32.0-36.5); MEAN CORPUSCULAR VOLUME 87.8 fl (80.0-96.0); PLATELET COUNT, AUTOMATED 341 10^3/uL (150-450); RED BLOOD COUNT 4.02 10^6/uL (4.00-5.40); WHITE BLOOD COUNT 7.3 10^3/uL (4.0-10.0)
[2021-01-07 07:35] LABS: ALBUMIN 2.7 GM/DL (3.2-5.2); ALT/SGPT 110 U/L (12-78); BILIRUBIN,TOTAL 0.4 MG/DL (0.2-1.0); BLOOD UREA NITROGEN 6 MG/DL (7-18); CALCIUM LEVEL 8.7 MG/DL (8.5-10.1); CARBON DIOXIDE LEVEL 26 MEQ/L (21-32); CHLORIDE LEVEL 110 MEQ/L (98-107); CREATININE FOR GFR 0.65 MG/DL (0.55-1.30); GLOMERULAR FILTRATION RATE > 60.0 (>60); GLUCOSE, FASTING 86 MG/DL (70-100); LIPASE 144 U/L (73-393); MAGNESIUM LEVEL 1.9 MG/DL (1.8-2.4); POTASSIUM SERUM 3.6 MEQ/L (3.5-5.1); SODIUM LEVEL 142 MEQ/L (136-145); TOTAL PROTEIN 6.2 GM/DL (6.4-8.2); TRIGLYCERIDES LEVEL 223 MG/DL (<150)
--- NOTE | 2021-01-07 16:24 | DS.PDOC ---
Discharge Summary General Date of Admission Jan 06, 2021 at 05:55 Date of Discharge 01/07/2021 Attending Physician: RENNY LUI DO Discharge Summary PROCEDURES PERFORMED DURING STAY: None. ADMITTING DIAGNOSES: 1. Acute pancreatitis. 2. Cholelithiasis 3. Elevated D-dimer 4. Chest pain 5. Fatty liver disease 6. Abnormal urinalysis DISCHARGE DIAGNOSES: 1. Acute pancreatitis, improved. 2. Cholelithiasis 3. Elevated D-dimer 4. Chest pain 5. Fatty liver disease 6. Abnormal urinalysis, asymptomatic COMPLICATIONS/CHIEF COMPLAINT: Gallstone Pancreatitis. HISTORY OF PRESENT ILLNESS: Patient is a 25-year-old female who is 1 month who presented with epigastric pain of a larissa and tightening nature that she rated an 8 out of 10. Patient reports that 2 days ago the pain was relieved by ibuprofen however, today after administering oxycodone which she had from her prior she is still in pain. Patient reports that the pain is intermittent and last about 45 minutes. Patient has had 2 previous episodes of pancreatitis, one during her , during which she was found have gallstones. Patient presents approximately 2 weeks ago with pancreatitis to the emergency department. Patient reports that since having these episodes pancreatitis, patient has been eating only chicken broth and Jell-O due to the pain. Patient reports that she is not currently breast-feeding at this time. Patient reports chest pain associate with epigastric pain. The chest pain is not pleuritic in nature. It is not worsened with pressure. The patient reports shortness of breath when she is lying in the right lateral recumbent position. She denies dyspnea on exertion. Patient denies nausea, vomiting, diarrhea, constipation and denies fevers, chills, night sweats.. HOSPITAL COURSE: Patient began to feel better throughout the day with IV fluid hydration. Patient reports that she did improve and was able to eat clear liquids. This diet could quickly be advanced to a low-fat diet. Patient had spaghetti with Pasta sauce on the evening of 01/06/2021 which did not exacerbate the patient's abdominal pain. Patient was feeling better on the morning of 01/07/2021. Patient states she had an appointment with general surgery for 01/07/2021 that she wanted to make. Patient was feeling better and was able to tolerate oral diet. Patient did have an episode of wheezing overnight but this resolved after 1 nebulizer treatment. This may be secondary to the patient's 4 L of lactated Ringer's that were given to her due to her acute pancreatitis. Patient was feeling well and was deemed ready for discharge on 01/07/2021. DISCHARGE MEDICATIONS: Please see below. ALLERGIES: Please see below. PHYSICAL EXAMINATION ON DISCHARGE: VITAL SIGNS: Please see below. General: Alert and oriented female patient who was laying in bed when I walked in. Patient not appear to be in any acute distress. HEENT: Normocephalic, atraumatic, moist mucous membranes. Neck: No lymphadenopathy or thyromegaly Cardiac: Regular rate and rhythm, no murmurs, normal S1, normal S2 Pulm: Clear to auscultation bilaterally. No wheezes, rhonchi, rales Abd: Nondistended, mild tenderness to palpation in the epigastric area, no rebound tenderness, normal bowel sounds Ext: No edema bilateral lower extremities LABORATORY DATA: Please see below. IMAGING: Chest x-ray performed on 01/06/2021 is reported to show no acute findings. Gallbladder ultrasound from 01/06/2021 is reported to show hepatomegaly and steatosis. Suggestion of cholelithiasis and biliary sludge. No specific evidence of acute cholecystitis. CT of the abdomen and pelvis with IV contrast performed on 01/06/2021 was reported to show mild Pado megaly and steatosis. Involuting bilateral ovarian cyst with trace free fluid in the cul-de-sac. Pelvic ultrasound can be used for further characterization if clinically warranted. Mild bowel wall thickening involving small bowel loops predominantly in the left upper abdomen. Under distention is favored. Enteritis cannot be completely excluded. Normal appendix. CT of the chest performed without contrast on 01/06/2021 was reported to show no acute findings. MRI of the abdomen performed without contrast on 01/06/2021 was reported to show within normal limits PROGNOSIS: Good ACTIVITY: As tolerated. DIET: Low-fat diet DISCHARGE PLAN: Discharge home DISPOSITION: Home, Self-Care. DISCHARGE INSTRUCTIONS: 1. Follow-up with primary care within 5 to 7 days of discharge 2. Follow-up with general surgery as scheduled 3. Eat a low-fat diet for 7 to 10 days before advancing to a regular diet 4. Return to the emergency department if symptoms worsen ITEMS TO FOLLOWUP ON ON OUTPATIENT: 1. None. DISCHARGE CONDITION: Stable. TIME SPENT ON DISCHARGE: 35 minutes. Vital Signs/I&Os Vital Signs Date Time Temp Pulse Resp B/P (MAP) Pulse Ox O2 Delivery O2 Flow Rate FiO2 01/07/21 05:36 97.4 73 16 122/78 (93) 94 Room Air I&O- Last 24 Hours up to 6 AM 01/07/21 06:00 Intake Total 1330 ml Balance 1330 ml Laboratory Data Labs 24H Laboratory Tests 2 01/07/21 05:33: Nucleated Red Blood Cells % (auto) 0.0, Anion Gap 6L, Glomerular Filtration Rate > 60.0, Calcium Level 8.7, Magnesium Level 1.9, Total Bilirubin 0.4, Aspartate Amino Transf (AST/SGOT) 59H, Alanine Aminotransferase (ALT/SGPT) 110H, Alkaline Phosphatase 165H, Total Protein 6.2L, Albumin 2.7L, Albumin/Globulin Ratio 0.8L, Triglycerides Level 223H, Lipase 144 CBC/BMP Laboratory Tests 01/07/21 05:33 Discharge Medications Scheduled PRN Ibuprofen (Ibuprofen) 600 Mg Tablet, 600 MG PO Q6H PRN for MODERATE PAIN (PS 5- 7), (Reported) Oxycodone HCl (Oxycodone HCl) 5 Mg Tablet, 5 MG PO Q6H PRN for SEVERE PAIN (PS 8-10), (Reported) Allergies Coded Allergies: Sulfa (Sulfonamide Antibiotics) (Verified Allergy, Unknown, 10/28/20) swelling throat mouth face, hives HURENNY Jan 07, 2021 16:24
--- NOTE | 2021-01-07 16:43 | ECGEPIP ---
[facility] - ED Test Date: 2021-01-06 Pat Name: NATHALIA CONTRERAS Department: Room: [place] [address] Gender: Female [employer] Specialist: CHASTITY : 1995 Requested By: ZOHRA Anna Order Number: [id number] Reading MD: Anjana Hernandez Measurements Intervals [place] Rate: 73 P: 43 MT: 190 QRS: 63 QRSD: 88 T: 24 QT: 400 QTc: 440 Interpretive Statements No prior Normal sinus rhythm Electronically Signed on 01-07-2021 16:42:48 EST by Anjana Hernandez
== END 2021-01-07 08:45 | disposition home or self-care (01) | DRG 776 ==
LOC: M ED 23:29 → M ED INP 01-06 05:55 → ENRESERV 01-06 11:10 → M MSPAV 01-06 12:30
PROVIDERS: ADMIT Internal Medicine; ATTEND Family Medicine
DX: O99.63 Diseases of the digestive system complicating the puerperium (principal); K85.90 Acute pancreatitis without necrosis or infection, unspecified; K80.20 Calculus of gallbladder without cholecystitis without obstruction; K21.9 Gastro-esophageal reflux disease without esophagitis; E66.9 Obesity, unspecified; O26.63 Liver and biliary tract disorders in the puerperium; K76.0 Fatty (change of) liver, not elsewhere classified; O99.215 Obesity complicating the puerperium; Z88.2 Allergy status to sulfonamides

== ENCOUNTER 2021-01-29 23:26 | Observation (INO) | payer OTHER ==
[~2021-01-29] VITALS: Ht 160 cm; Wt 107.7 kg
[~2021-01-29 23:26] MED LIST changes: +IBUP1TAB6 PO
[2021-01-30 00:41] LABS: BASO % 0.2 % (0.0-1.0); EOS # 0.1 10^3/uL (0.0-0.5); EOS % 0.9 % (0.0-3.0); HEMATOCRIT 36.2 % (36.0-47.0); HEMOGLOBIN 11.8 g/dl (12.0-15.5); LYMPH # 2.7 10^3/uL (1.5-5.0); LYMPH % 20.6 % (24.0-44.0); MEAN CORPUSCULAR HEMOGLOBIN 27.8 pg (27.0-33.0); MEAN CORPUSCULAR HGB CONC 32.6 g/dl (32.0-36.5); MEAN CORPUSCULAR VOLUME 85.4 fl (80.0-96.0); MONO # 0.9 10^3/uL (0.0-0.8); MONO % 7.1 % (2.0-8.0); NEUTROPHILS # 9.2 10^3/uL (1.5-8.5); PLATELET COUNT, AUTOMATED 381 10^3/uL (150-450); RED BLOOD COUNT 4.24 10^6/uL (4.00-5.40); WHITE BLOOD COUNT 12.9 10^3/uL (4.0-10.0)
[2021-01-30 01:09] LABS: HCG, SERUM QUALITATIVE NEGATIVE (NEGATIVE)
[2021-01-30 01:12] LABS: ALBUMIN 3.3 GM/DL (3.2-5.2); ALT/SGPT 55 U/L (12-78); BILIRUBIN,DIRECT 0.3 MG/DL (0.0-0.2); BILIRUBIN,TOTAL 1.1 MG/DL (0.2-1.0); BLOOD UREA NITROGEN 8 MG/DL (7-18); CALCIUM LEVEL 8.9 MG/DL (8.5-10.1); CARBON DIOXIDE LEVEL 27 MEQ/L (21-32); CHLORIDE LEVEL 108 MEQ/L (98-107); CREATININE FOR GFR 0.63 MG/DL (0.55-1.30); GLOMERULAR FILTRATION RATE > 60.0 (>60); GLUCOSE, FASTING 104 MG/DL (70-100); LIPASE 108 U/L (73-393); POTASSIUM SERUM 3.8 MEQ/L (3.5-5.1); SODIUM LEVEL 141 MEQ/L (136-145); TOTAL PROTEIN 6.4 GM/DL (6.4-8.2)
--- NOTE | 2021-01-30 03:28 | REPVR ---
PROCEDURE INFORMATION: Exam: US Abdomen, Limited; Right Upper Quadrant Exam date and time: 01/30/21 (1:36am) Age: 25 years old Clinical indication: Acute abdominal pain. Known gallstones. Increased pain. TECHNIQUE: Imaging protocol: US abdomen. Real time ultrasound with image documentation. Limited examination focused on the right upper quadrant. COMPARISON: US GALLBLADDER of 01/06/21 FINDINGS: The liver is visually normal in size and texture. Mildly distended gallbladder. Small stones at gallbladder neck. Thin gallbladder wall. No pericholecystic fluid is appreciated. The CBD is mildly prominent (5.6 mm diameter). The pancreas is obscured by bowel gas. The right kidney measures 9.8 cm in length, with no hydronephrosis appreciated. No ascites is seen. IMPRESSION: No acute pathology. No evidence of acute cholecystitis. Small stones at the gallbladder neck. Thin gallbladder wall. No pericholecystic fluid. The CBD is mildly prominent 5.6 mm diameter. Electronically signed by: Monique Kelly On 01/30/2021 03:27:41 AM
[2021-01-30] MEDS ORDERED: PIPERACILLIN/TAZOBACTAM SOD 3.375 GM in D5W MINI-BAG PLUS 50 ML IV ONE (03:55)
[2021-01-30] MEDS ORDERED: MORPHINE 2 MG/ML 1ML VIAL (J2270) IV PRN ×3 (03:55→11:50)
[2021-01-30 05:00] LABS: RSV AMPLIFICATION NEGATIVE (NEGATIVE)
[2021-01-30] MEDS ORDERED: OXYC-517 PO (05:51)
[2021-01-30] MEDS ORDERED: HOME MED LIST COMPLETE! XX SCH (05:55)
[2021-01-30 09:45] VITALS: BP 153/86
--- NOTE | 2021-01-30 09:53 | HPE ---
HISTORY AND PHYSICAL DATE OF ADMISSION: 01/30/2021 REASON FOR CONSULT: Abdominal pain. HISTORY OF PRESENT ILLNESS: The patient is a 25-year-old female who is a known patient of Dr. Davis. She is already scheduled for surgery two weeks from now with him and she has been having persistent abdominal pains in the right upper quadrant. She does not think she can wait another two weeks. She was recently in the hospital in December for gallstone pancreatitis. She did not have an ERCP done at that time. It resolved on its own. However, she is still having these intermittent right upper quadrant problems and having difficulty eating anything. PAST MEDICAL HISTORY: Obesity. PAST SURGICAL HISTORY: . SOCIAL HISTORY: Denies drug, alcohol, or tobacco abuse. FAMILY HISTORY: Noncontributory. ALLERGIES: SULFA. HOME MEDICATIONS: Please see [facility]. REVIEW OF SYSTEMS: Current positives and negatives as in HPI. PHYSICAL EXAMINATION: GENERAL: Alert and oriented times three in no acute distress. VITAL SIGNS: Temperature 97.5, pulse 85, respirations 20, blood pressure 128/73, pulse oximetry 98% on room air. HEENT: Pupils equally round and reactive to light and accommodation. HEART: S1, S2, regular rate and rhythm. LUNGS: Clear to auscultation bilaterally. ABDOMEN: Soft, slight tenderness in the right upper quadrant. No rebound, guarding or rigidity. EXTREMITIES: No clubbing, cyanosis, or edema. LABS: White count 12.9, hemoglobin 11.8, platelets 381. Potassium 3.8, creatinine 0.63, total bilirubin 1.1, direct bilirubin 0.3, AST 62, ALT 55, alkaline phosphatase 138. IMAGING: Ultrasound of the gallbladder showed no evidence of acute cholecystitis. There were small stones in the gallbladder neck, thin gallbladder wall. No pericholecystic fluid. Common bile duct is mildly prominent at 5.6 mm in diameter. ASSESSMENT AND PLAN: The patient is a 25-year-old female with symptomatic cholelithiasis. The recommendation at this time is to admit her overnight on observation for pain control. Likely we will start her on some antibiotics and pain control, keep her NPO for now. Dr. Chavez will be around in a couple of hours. I will discuss the case with him and let him decide whether he wants to send her home and continue to plan for surgery as an outpatient or if he would like to move her up and consider doing it as an inpatient. All of her questions are answered. She will follow up with Dr. Chavez this afternoon.
[2021-01-30] MEDS ORDERED: ONDANSETRON 4 MG TAB PO PRN (11:50)
[2021-01-30 12:24] VITALS: BP 139/84
[2021-01-30] MEDS: PIPERACILLIN/TAZOBACTAM SOD 3.375 GM in D5W MINI-BAG PLUS 50 ML IV SCH ×2 (12:34→18:39)
[2021-01-30] MEDS: PANTOPRAZOLE 40MG VIAL (C9113 PER 1) IV SCH (12:34)
[2021-01-30] MEDS: NS 1,000 ML IV SCH ×2 (12:35→20:42)
[2021-01-30] MEDS: KETOROLAC 30 MG/ML 1ML VIAL IV PRN ×2 (12:37→18:40)
[2021-01-30 16:00] VITALS: BP 139/84
[2021-01-30 17:03] LABS: ALBUMIN 3.2 GM/DL (3.2-5.2); ALT/SGPT 185 U/L (12-78); BILIRUBIN,TOTAL 1.3 MG/DL (0.2-1.0); BLOOD UREA NITROGEN 6 MG/DL (7-18); CALCIUM LEVEL 8.8 MG/DL (8.5-10.1); CARBON DIOXIDE LEVEL 25 MEQ/L (21-32); CHLORIDE LEVEL 112 MEQ/L (98-107); CREATININE FOR GFR 0.66 MG/DL (0.55-1.30); GLOMERULAR FILTRATION RATE > 60.0 (>60); GLUCOSE, FASTING 91 MG/DL (70-100); POTASSIUM SERUM 4.1 MEQ/L (3.5-5.1); SODIUM LEVEL 143 MEQ/L (136-145); TOTAL PROTEIN 6.2 GM/DL (6.4-8.2)
[2021-01-30 20:16] VITALS: BP 155/85
[2021-01-31] VITALS (9 sets, daily range): BP systolic 135–145; BP diastolic 73–85
[2021-01-31] MEDS: PIPERACILLIN/TAZOBACTAM SOD 3.375 GM in D5W MINI-BAG PLUS 50 ML IV SCH ×3 (00:33→12:52)
[2021-01-31] MEDS: NS 1,000 ML IV SCH ×2 (01:10→04:43)
[2021-01-31 06:25] LABS: HEMOGLOBIN 10.4 g/dl (12.0-15.5); MEAN CORPUSCULAR HEMOGLOBIN 27.4 pg (27.0-33.0); MEAN CORPUSCULAR HGB CONC 31.5 g/dl (32.0-36.5); MEAN CORPUSCULAR VOLUME 87.1 fl (80.0-96.0); PLATELET COUNT, AUTOMATED 325 10^3/uL (150-450); RED BLOOD COUNT 3.79 10^6/uL (4.00-5.40); WHITE BLOOD COUNT 6.8 10^3/uL (4.0-10.0)
[2021-01-31] MEDS ORDERED: BUPIVACAINE/EPIN 0.25% 30 ML VIAL As Ordered ONE (06:25)
[2021-01-31 06:45] LABS: ALBUMIN 2.7 GM/DL (3.2-5.2); ALT/SGPT 125 U/L (12-78); BILIRUBIN,TOTAL 0.9 MG/DL (0.2-1.0); BLOOD UREA NITROGEN 7 MG/DL (7-18); CALCIUM LEVEL 8.3 MG/DL (8.5-10.1); CARBON DIOXIDE LEVEL 26 MEQ/L (21-32); CHLORIDE LEVEL 111 MEQ/L (98-107); CREATININE FOR GFR 0.65 MG/DL (0.55-1.30); GLOMERULAR FILTRATION RATE > 60.0 (>60); GLUCOSE, FASTING 75 MG/DL (70-100); POTASSIUM SERUM 3.8 MEQ/L (3.5-5.1); SODIUM LEVEL 143 MEQ/L (136-145); TOTAL PROTEIN 5.6 GM/DL (6.4-8.2)
[2021-01-31] MEDS ORDERED: fentaNYL 100 MCG/2 ML INJECTION (J3010) As Ordered ONE ×2 (07:33→08:32)
[2021-01-31] MEDS ORDERED: MIDAZOLAM INJ 2MG/2ML VIAL (J2250 PER 1MG) As Ordered ONE (07:33)
[2021-01-31] MEDS ORDERED: ROCURONIUM BROMIDE 50 MG/5 ML VIAL As Ordered ONE ×2 (07:34→08:46)
[2021-01-31] MEDS ORDERED: dexameTHASONE 4 MG/ML 1ML VIAL (J1100 PER 1MG) As Ordered ONE (07:34)
[2021-01-31] MEDS ORDERED: propofoL 200 MG/20 ML VIAL As Ordered ONE (07:34)
[2021-01-31] MEDS ORDERED: ONDANSETRON 4MG/2ML VIAL As Ordered ONE (07:34)
[2021-01-31] MEDS ORDERED: LIDOCAINE 2% 100MG/5ML SDV (FOR ANES.) As Ordered ONE (07:34)
[2021-01-31] MEDS ORDERED: ACETAMINOPHEN 1000MG 100ML IV BTL (OFIRMEV) (J0131 PER 10MG) As Ordered ONE (08:31)
[2021-01-31] MEDS ORDERED: SUGAMMADEX SODIUM 500 MG/5 ML VIAL (BRIDION) As Ordered ONE (08:32)
[2021-01-31] MEDS ORDERED: KETOROLAC 60MG 2ML VIAL As Ordered ONE (08:32)
[2021-01-31] MEDS ORDERED: DESFLURANE 240 ML INHALANT As Ordered ONE (08:46)
[2021-01-31] MEDS: PANTOPRAZOLE 40MG VIAL (C9113 PER 1) IV SCH ×2 (09:00→10:34)
[2021-01-31] MEDS ORDERED: PERCOCET 5MG/325MG TAB PO PRN (09:50)
[2021-01-31] MEDS ORDERED: ONDANSETRON 4MG/2ML VIAL IV PRN (09:50)
[2021-01-31] MEDS ORDERED: fentaNYL 100 MCG/2 ML INJECTION (J3010) IV PRN (09:50)
[2021-01-31] MEDS ORDERED: LR 1,000 ML IV SCH (09:50)
[2021-01-31] MEDS ORDERED: KETOROLAC 30 MG/ML 1ML VIAL IV SCH (15:00)
--- NOTE | 2021-02-10 15:29 | RO ---
OPERATIVE NOTE DATE OF OPERATION: 01/31/2021 PREOPERATIVE DIAGNOSIS: Cholecystitis/symptomatic gallstones. POSTOPERATIVE DIAGNOSIS: Cholecystitis/symptomatic gallstones. PROCEDURE: Laparoscopic cholecystectomy. SURGEON: Everett Chavez Jr., MD. [employer]IVER: ANESTHESIA: General endotracheal anesthesia. EBL: Minimal. FLUIDS: Crystalloid. BRIEF PROCEDURE SUMMARY: The patient was brought to the operating room and was given general anesthesia. After adequate anesthesia and preoperative antibiotics were given, the patient was prepped and draped in the usual sterile fashion. Next, a supraumbilical incision was made with a skin knife. Blunt dissection was carried down to fascia. Fascia was entered with a Veress needle and insufflated to 15 mmHg. Dilating 10 mm trocar was placed, and under direct visualization an epigastric and two lateral trocars were placed. The gallbladder was seen, grasped, and placed superiorly over the liver, and there were some adhesions that were taken down from the gallbladder to the omentum with hook cautery. Eventually the neck of the gallbladder was cleared of peritoneum, and once this was cleared nicely, the neck of the gallbladder was well visualized down to the cystic duct area. The cystic artery was well visualized as well. Once these two structures were well identified and the cystic artery was clipped proximally and distally and transected, neck of the gallbladder/cystic duct area was even better visualized now that I could move out even further to the left and medially more. Once this was able to be mobilized further, this was clipped proximally and distally and transected, and then the gallbladder was removed from the gallbladder bed, placed in an Endo-Catch bag, and brought out through the umbilicus. 0 Vicryl was used to close the fascia at the umbilicus, and all incisions were closed with 4-0 Vicryl. Steri-Strips and a dry sterile dressing were applied. Patient was awakened, extubated, and brought to the recovery room awake, alert, and hemodynamically stable. Sponge and needle counts correct x2.
== END 2021-01-31 16:56 | disposition home or self-care (01) ==
LOC: M ED 23:26 → M ED INP 01-30 03:53 → ENRESERV 01-30 07:57 → M PCU 01-30 09:39 → M MSPAV 01-30 20:15
PROVIDERS: ADMIT Surgery; ATTEND Surgery
DX: O99.63 Diseases of the digestive system complicating the puerperium (principal); K80.10 Calculus of gallbladder with chronic cholecystitis without obstruction; O99.215 Obesity complicating the puerperium; Z68.41 Body mass index [BMI] 40.0-44.9, adult; Z88.2 Allergy status to sulfonamides; Z91.048 Other nonmedicinal substance allergy status; Z87.19 Personal history of other diseases of the digestive system; Z79.899 Other long term (current) drug therapy
CPT/HCPCS: 36415; 47562; 76705; 80048; 80053; 80076; 81001; 83690; 84703; 85025; 85027; 87086; 87631; 88304; 96365; 96366; 96375; 96376; 99284; C9113; J0131; J1100; J1885; J2250; J2270; J2405; J2543; J3010

== ENCOUNTER → 2021-11-09 | Outpatient (CLI) | payer OTHER ==
[2021-11-09 10:47] LABS: HEMOGLOBIN 13.9 g/dl (12.0-15.5); MEAN CORPUSCULAR HGB CONC 32.3 g/dl (32.0-36.5); MEAN CORPUSCULAR VOLUME 86.7 fl (80.0-96.0); PLATELET COUNT, AUTOMATED 400 10^3/uL (150-450); RED BLOOD COUNT 4.96 10^6/uL (4.00-5.40); WHITE BLOOD COUNT 7.7 10^3/uL (4.0-10.0)
[2021-11-09 11:46] LABS: ALBUMIN 3.8 GM/DL (3.2-5.2); ALT/SGPT 33 U/L (12-78); BILIRUBIN,TOTAL 0.7 MG/DL (0.2-1.0); BLOOD UREA NITROGEN 10 MG/DL (7-18); CALCIUM LEVEL 9.4 MG/DL (8.5-10.1); CARBON DIOXIDE LEVEL 27 MEQ/L (21-32); CHLORIDE LEVEL 104 MEQ/L (98-107); CREATININE FOR GFR 0.59 MG/DL (0.55-1.30); FERRITIN 28 NG/ML (8-252); GLOMERULAR FILTRATION RATE > 60.0 (>60); GLUCOSE, FASTING 87 MG/DL (70-100); IRON (FE) 50 UG/DL (50-170); PERCENT SATURATION 12.1 % (13.2-45.0); POTASSIUM SERUM 3.9 MEQ/L (3.5-5.1); SODIUM LEVEL 136 MEQ/L (136-145); TOTAL IRON BINDING CAPACITY 412 UG/DL (250-450); TOTAL PROTEIN 7.7 GM/DL (6.4-8.2)
[2021-11-11 01:07] LABS: IgG P18 AB Absent (.); IgG P23 AB Absent (.); IgG P28 AB Absent (.); IgG P30 AB Absent (.); IgG P39 AB Absent (.); IgG P41 AB Absent (.); IgG P45 AB Absent (.); IgG P66 AB Absent (.); IgG P93 AB Absent (.); IgM P23 AB Absent (.); IgM P39 AB Absent (.); IgM P41 AB Absent (.); LYME IgG WB INTERPRETATION Negative (.); LYME IgM WB INTERPRETATION Negative (.)
== END ==
LOC: M PLALAB 08:16
PROVIDERS: ATTEND Nurse Practitioner Adult Health
DX: R19.7 Diarrhea, unspecified (principal); R53.83 Other fatigue; M62.81 Muscle weakness (generalized)

== ENCOUNTER → 2021-11-09 | Outpatient (CLI) | payer OTHER, MEDICAID | LOC: M WHC 07:42 | PROVIDERS: ATTEND Nurse Practitioner Adult Health | DX: R10.11 Right upper quadrant pain (principal) ==

== ENCOUNTER → 2022-04-06 | Outpatient (CLI) | payer OTHER ==
[2022-04-06 12:53] LABS: HEMOGLOBIN A1c 5.2 % (4.0-6.0)
== END ==
LOC: M LAB 11:35
PROVIDERS: ATTEND Surgery
DX: Z86.39 Personal history of other endocrine, nutritional and metabolic disease (principal)

== ENCOUNTER → 2022-06-29 | Outpatient (CLI) | payer OTHER ==
[2022-06-29 11:12] LABS: HEMATOCRIT 40.7 % (36.0-47.0); HEMOGLOBIN 13.3 g/dl (12.0-15.5); MEAN CORPUSCULAR HGB CONC 32.7 g/dl (32.0-36.5); MEAN CORPUSCULAR VOLUME 88.9 fl (80.0-96.0); PLATELET COUNT, AUTOMATED 357 10^3/uL (150-450); RED BLOOD COUNT 4.58 10^6/uL (4.00-5.40); WHITE BLOOD COUNT 9.1 10^3/uL (4.0-10.0)
[2022-06-29 11:13] LABS: ALBUMIN 3.5 G/DL (3.2-5.2); ALKALINE PHOSPHATASE 99 U/L (46-116); ALT/SGPT 22 U/L (7.0-40); AST/SGOT 11 U/L (<34); BILIRUBIN,TOTAL 0.5 MG/DL (0.3-1.2); BLOOD UREA NITROGEN 10 MG/DL (9-23); CALCIUM LEVEL 8.8 MG/DL (8.5-10.1); CARBON DIOXIDE LEVEL 27 MMOL/L (20-31); CHLORIDE LEVEL 108 MMOL/L (98-107); CREATININE FOR GFR 0.64 MG/DL (0.55-1.30); GLOMERULAR FILTRATION RATE > 60.0 (>60); GLUCOSE, FASTING 69 MG/DL (60-100); POTASSIUM SERUM 4.4 MMOL/L (3.5-5.1); SODIUM LEVEL 141 MMOL/L (136-145); TOTAL PROTEIN 6.7 G/DL (5.7-8.2)
== END ==
LOC: M PLALAB 08:23
PROVIDERS: ATTEND Nurse Practitioner Adult Health
DX: Z00.00 Encounter for general adult medical examination without abnormal findings (principal); Z91.013 Allergy to seafood

== ENCOUNTER → 2022-12-08 | Outpatient (CLI) | payer OTHER ==
[2022-12-08 17:17] LABS: HEMOGLOBIN A1c 4.8 % (4.0-6.0)
== END ==
LOC: M LAB 16:13
PROVIDERS: ATTEND Surgery
DX: Z86.39 Personal history of other endocrine, nutritional and metabolic disease (principal)

== ENCOUNTER → 2023-01-31 | Outpatient (CLI) | payer OTHER | LOC: M CARPUL 12:29 | PROVIDERS: ATTEND Nurse Practitioner Adult Health | DX: R06.02 Shortness of breath (principal); R06.2 Wheezing ==

== ENCOUNTER → 2023-03-08 | Outpatient (CLI) | payer OTHER ==
[2023-03-08 16:44] LABS: HEMATOCRIT 39.2 % (36.0-47.0); HEMOGLOBIN 12.7 g/dl (12.0-15.5); MEAN CORPUSCULAR HEMOGLOBIN 28.7 pg (27.0-33.0); MEAN CORPUSCULAR HGB CONC 32.4 g/dl (32.0-36.5); MEAN CORPUSCULAR VOLUME 88.7 fl (80.0-96.0); PLATELET COUNT, AUTOMATED 397 10^3/uL (150-450); RED BLOOD COUNT 4.42 10^6/uL (4.00-5.40); WHITE BLOOD COUNT 7.4 10^3/uL (4.0-10.0)
[2023-03-08 17:03] LABS: HEMOGLOBIN A1c 4.9 % (4.0-6.0)
[2023-03-08 17:08] LABS: HEMATOCRIT 39.7 % (36.0-47.0)
[2023-03-08 17:18] LABS: FERRITIN 55.9 NG/ML (7.3-270.7); IRON (FE) 32 UG/DL (50-170); TOTAL 25(OH) VITAMIN D 36.6 NG/ML (20.0-100.0)
[2023-03-08 17:19] LABS: VITAMIN B12 LEVEL 1649 PG/ML (211-911)
[2023-03-08 17:32] LABS: ALBUMIN 3.2 G/DL (3.2-5.2); ALKALINE PHOSPHATASE 84 U/L (46-116); ALT/SGPT 40 U/L (7.0-40); AST/SGOT 27 U/L (<34); BILIRUBIN,TOTAL 0.5 MG/DL (0.3-1.2); BLOOD UREA NITROGEN < 5 MG/DL (9-23); CALCIUM LEVEL 8.4 MG/DL (8.5-10.1); CARBON DIOXIDE LEVEL 27 MMOL/L (20-31); CHLORIDE LEVEL 107 MMOL/L (98-107); CREATININE FOR GFR 0.54 MG/DL (0.55-1.30); GLOMERULAR FILTRATION RATE > 60.0 (>60); GLUCOSE, FASTING 80 MG/DL (60-100); MAGNESIUM LEVEL 1.5 MG/DL (1.8-2.4); PHOSPHORUS LEVEL 3.3 MG/DL (2.5-4.9); POTASSIUM SERUM 3.4 MMOL/L (3.5-5.1); SODIUM LEVEL 143 MMOL/L (136-145); TOTAL PROTEIN 6.3 G/DL (5.7-8.2)
== END ==
LOC: M LAB 16:04
PROVIDERS: ATTEND Physician Assistant Surgical
DX: E55.9 Vitamin D deficiency, unspecified (principal); K91.2 Postsurgical malabsorption, not elsewhere classified; E66.01 Morbid (severe) obesity due to excess calories; Z98.84 Bariatric surgery status; Z86.39 Personal history of other endocrine, nutritional and metabolic disease

== ENCOUNTER → 2023-04-25 | Outpatient (CLI) | payer OTHER | LOC: M RAD 06:31 | PROVIDERS: ATTEND Nurse Practitioner Family | DX: N20.0 Calculus of kidney (principal) ==